=== PATIENT | female | born 1995 | race Caucasian/White ===

== ENCOUNTER 2020-10-15 14:14 | Emergency (ER) | payer MEDICAID ==
[2020-10-15] MEDS ORDERED: Orphenadrine 60 MG/2 ML Inj IM ONE (14:53)
[2020-10-15] MEDS ORDERED: Ketorolac 60 MG/2 ML SDV IM ONE (14:53)
--- NOTE | 2020-10-15 16:18 | CT ---
INDICATION: Neck pain TECHNIQUE: Non-contrast axial CT of the cervical spine with coronal and sagittal reconstructions. No comparisons. FINDINGS: The overall stature and alignment of the cervical spine is within normal limits. Prevertebral soft tissues, cervical airway, dens and lateral masses are within normal limits. No evidence of bony fragments narrowing the central canal or visualized neural foramina. IMPRESSION: No radiographic evidence of acute osseous injury. Please note that all CT scans at this facility use dose modulation, iterative reconstruction, and/or weight-based dosing when appropriate to reduce radiation dose to as low as reasonably achievable. Dictated by Aurelio Alfaro MD @ 10/15/2020 4:16:[address] Aurelio Alfaro @ Oct 15 2020 4:16PM
--- NOTE | 2020-10-15 16:20 | CT ---
INDICATION: Low back pain. TECHNIQUE: Non-contrast axial CT of the lumbar spine with coronal and sagittal reconstructions. No comparisons. FINDINGS: The overall stature and alignment of the lumbar spine is within normal limits. No evidence of bony fragments narrowing the central canal or visualized neural foramina. Evidence of right sacroiliac joint fusion hardware. Evidence of IVC filter. IMPRESSION: No radiographic evidence of acute osseous injury. No radiographic evidence of suspicious central canal or foraminal narrowing. Please note that all CT scans at this facility use dose modulation, iterative reconstruction, and/or weight-based dosing when appropriate to reduce radiation dose to as low as reasonably achievable. Dictated by Aurelio Alfaro MD @ 10/15/2020 4:18:[address] Aurelio Alfaro @ Oct 15 2020 4:18PM
--- NOTE | 2020-10-15 16:37 | EDM.PDOC ---
ED HPI GENERAL MEDICAL PROBLEM - General Chief Complaint: Back Pain or Injury Stated Complaint: BACK PAIN Time Seen by Provider: 10/15/20 14:20 Source of Information: Reports: Patient History Limitations: Reports: No Limitations - History of Present Illness INITIAL COMMENTS - FREE TEXT/NARRATIVE: HISTORY AND PHYSICAL: History of present illness: Patient is a 25-year-old female who presents to the emergency room with complaints of neck and low back pain. She states she has chronic neck and back pain but over the past 1 week has been worse than usual. [place], has been here for 2 weeks, has not yet established with a primary care provider. She reports that she previously had been on several different pain medications for her back pain, but has not been on these due to the recent move. She states she was leaning over her balcony when she noticed the discomfort. She denies any injury, trauma or falls. She denies any urinary or fecal incontinence. She does have intermittent paresthesia of the left hand. She states her lumbar back pain has been "bad ever since her epidural". She denies any weakness or neurological deficits. Patient denies any fever, chills, headache, change in vision, syncope or near syncope. Denies any chest pain, shortness of breath or cough. Denies any abdominal pain, nausea, vomiting, diarrhea, constipation or dysuria. Has not noted any blood in urine or stool. No concern for . Patient has been eating and drinking appropriately. Review of systems: As per history of present illness and below otherwise all systems reviewed and negative. Past medical history: As per history of present illness and as reviewed below otherwise noncontributory. Surgical history: As per history of present illness and as reviewed below otherwise noncontributory. Social history: See social history for further information Family history: As per history of present illness and as reviewed below otherwise noncontributory. Physical exam: General: Well developed and well nourished. Alert and orientated x 3. Nontoxic in appearance and in no acute distress. Vital signs are stable and have been reviewed by me. Nursing notes were reviewed. HEENT: Atraumatic, normocephalic, pupils equal and reactive bilaterally, negative for conjunctival pallor or scleral icterus, mucous membranes moist, TMs normal bilaterally, throat clear, neck supple, nontender, trachea midline. No drooling or trismus noted. No meningeal signs. No hot potato voice noted. Lungs: Clear to auscultation bilaterally. No wheezes, rales, or rhonchi. Chest nontender. Normal work of breathing, no accessory muscles used. Heart: S1S2, regular rate and rhythm without overt murmur, gallops, or rubs. No JVD. No peripheral edema Abdomen: Soft, nondistended, nontender. Normoactive bowel sounds. Negative for masses or costovertebral tenderness. C-spine/Back: No pinpoint vertebral tenderness upon palpation. No crepitus, step-offs or obvious deformities. Paraspinous muscular tenderness to the cervical and low lumbar region bilaterally. Patient is ambulatory into the emergency room without difficulty or deficit. Able to rock back on heels and walk on toes. Denies any urinary or fecal incontinence. Denies any numbness, tingling or saddle paresthesia. No concerns of serious infection, fracture or cord compression, or cauda equina syndrome. Deep tendon reflexes brisk bilaterally. Skin: Intact, warm, dry. No lesions or rashes noted. Hematologic: No petechiae or purpra. Mucosa appropriate color and normal nail bed color and refill. Extremities: Atraumatic, moves all extremities per self without difficulty or deficits, negative for cords or calf pain. Neurovascular unremarkable. Neuro: Awake, alert, oriented. Cranial nerves II through XII unremarkable. Cerebellum unremarkable. Motor and sensory unremarkable throughout. Exam nonfocal. Psychiatric: Mood and affect are appropriate. Normal thought process. Answering questions appropriately. Notes: *This patient was seen and evaluated during the 2019 SARS-CoV-2 novel coronavirus pandemic period. Community viral transmission is ongoing at time of this encounter and the emergency department is operating under pandemic response procedures. Since the patient is new to our facility I am unable to view any imaging. She states it has been "years" since she has had x-ray/CT or MRI of her back. Due to the intermittent paresthesia of the left hand I will do CTs. She does have a ride today we will give her Norflex and Toradol. Nursing staff has been able to set a follow-up appointment for this patient to be established with primary care. X-ray shows no acute findings. I have talked with the patient about today's findings, in addition to providing specific d etails for plan of care. Reassessment at the time of disposition demonstrates that the patient is in no acute distress. The patient is stable for discharge, counseling was provided and we discussed in great detail signs and symptoms that would prompt them to return to the Emergency Department. Medication, follow up and supportive care measures were reviewed and discussed. Voices understanding and is agreeable to plan of care. Denies any further questions or concerns at this time. Diagnostics: CT neck and lumbar spine Therapeutics: Norflex IM, Toradol IM Prescription: Diclofenac, Flexeril Impression: Acute on chronic back pain Plan: 1. The medication you received today does cause drowsiness, so do not drive for the remaining day 2. When resting please lay on a flat firm surface. Limit your immobility to prevent muscle stiffness. Get up to ambulate/move around/gentle stretching multiple times throughout the day. May alternate heat and ice to the painful areas 3. Tylenol as needed for back pain. Otherwise take the prescribed Flexeril and diclofenac as directed. Diclofenac is an anti-inflammatory so do not take any additional NSAIDs with this medication, such as ibuprofen or Aleve. Flexeril as a muscle relaxant, this medication may cause drowsiness a do not take it will driving her needing to be functioning outside of the house. 4. Please follow-up with your primary care provider as we discussed. Return to the ED as needed and as discussed. Definitive disposition and diagnosis as appropriate pending reevaluation and review of above. back Pain Score (Numeric/FACES): 7 - Related Data Allergies Allergy/AdvReac Type Severity Reaction Status Date / Time Penicillins Allergy Severe Hives Verified 10/15/20 14:52 Home Meds: Home Meds Cyclobenzaprine [Flexeril] 10 mg PO TID PRN #21 tab 10/15/20 [Rx] DULoxetine [Cymbalta] 60 mg PO BID 10/15/20 [History] Diclofenac Sodium [Voltaren] 75 mg PO BIDMEALS PRN #30 tab.cr 10/15/20 [Rx] Pantoprazole [ProTONIX IV] 40 mg PO DAILY 10/15/20 [History] metFORMIN [Glucophage XR] 300 mg PO DAILY 10/15/20 [History] traZODone 1 tab PO DAILY 10/15/20 [History] Past Medical History HEENT History: Reports: None Cardiovascular History: Reports: None Respiratory History: Reports: Asthma Gastrointestinal History: Reports: Other (See Below) Other Gastrointestinal History: gastropheresis Genitourinary History: Reports: None EYEGLASS CUTTER History: Reports: None Musculoskeletal History: Reports: Back Pain, Chronic, Fibromyalgia, Gout, RA Neurological History: Reports: None Psychiatric History: Reports: None Endocrine/Metabolic History: Reports: Diabetes, Type II Hematologic History: Reports: None Immunologic History: Reports: None Oncologic (Cancer) History: Reports: None Dermatologic History: Reports: None - Infectious Disease History Infectious Disease History: Reports: Chicken Pox, MRSA - Past Surgical History HEENT Surgical History: Reports: None Cardiovascular Surgical History: Reports: None Respiratory Surgical History: Reports: None GI Surgical History: Reports: Other (See Below) Other GI Surgeries/Procedures: Radition so spleen Female Surgical History: Reports: None Endocrine Surgical History: Reports: None Neurological Surgical History: Reports: None Musculoskeletal Surgical History: Reports: Other (See Below) Other Musculoskeletal Surgeries/Procedures:: "screws placed in back" Oncologic Surgical History: Reports: None Dermatological Surgical History: Reports: None Social & Family History - Family History Family Medical History: No Pertinent Family History - Tobacco Use Tobacco Use Status *Q: Current Every Day Tobacco User Years of Tobacco use: 5 Packs/Tins Daily: 0.5 - Caffeine Use Caffeine Use: Reports: Coffee - Recreational Drug Use Recreational Drug Use: Yes Recreational Drug Type: Reports: Marijuana/Hashish Recreational Drug Use Frequency: Daily ED ROS GENERAL - Review of Systems Review Of Systems: Comprehensive ROS is negative, except as noted in HPI. ED EXAM,LOWER BACK PAIN/INJURY - Physical Exam Exam: See Below (See dictation) Course - Vital Signs Last Recorded V/S: Last Vital Signs Temp 97.8 F 10/15/20 14:54 Pulse 80 10/15/20 16:45 Resp 17 10/15/20 16:45 BP 137/95 H 10/15/20 16:45 Pulse Ox 95 10/15/20 16:45 - Orders/Labs/Meds Labs: Laboratory Tests 10/15/20 Range/Units 15:11 Urine HCG, Qual NEGATIVE (NEGATIVE) Meds: Medications Discontinued Medications Generic Name Dose Route Start Last Admin Trade Name Freq PRN Reason Stop Dose Admin Ketorolac Tromethamine 60 mg 10/15/20 14:53 10/15/20 15:09 Ketorolac 60 Mg/2 Ml Sdv IM 10/15/20 14:54 60 mg ONETIME ONE Administration Orphenadrine Citrate 60 mg 10/15/20 14:53 10/15/20 15:10 Orphenadrine 60 Mg/2 Ml Inj IM 10/15/20 14:54 60 mg ONETIME ONE Administration Departure - Departure Time of Disposition: 16:37 Disposition: Home, Self-Care 01 Clinical Impression: Back pain Qualifiers: Back pain location: low back pain Chronicity: unspecified Back pain laterality: bilateral Sciatica presence: without sciatica Qualified Code(s): M54.5 - Low back pain - Discharge Information Prescriptions: Cyclobenzaprine [Flexeril] 10 mg PO TID PRN #21 tab PRN Reason: Muscle Spasm Diclofenac Sodium [Voltaren] 75 mg PO BIDMEALS PRN #30 tab.cr PRN Reason: Pain Instructions: Chronic Back Pain, [id number] Referrals: PCP,None [Primary Care Provider] - Luis Manuel Deng MD [Physician] - 10/17/20 9:00 am (Please arrive 30 minutes early, bring photo ID and isurance cards) Forms: ED Department Discharge Additional Instructions: The following information is given to patients seen in the emergency department who are being discharged to home. This information is to outline your options for follow-up care. We provide all patients seen in our emergency department with a follow-up referral. The need for follow-up, as well as the timing and circumstances, are variable depending upon the specifics of your emergency department visit. If you don't have a primary care physician on staff, we will provide you with a referral. We always advise you to contact your personal physician following an emergency department visit to inform them of the circumstance of the visit and for follow-up with them and/or the need for any referrals to a consulting specialist. The emergency department will also refer you to a specialist when appropriate. This referral assures that you have the opportunity for follow-up care with a specialist. All of these measure are taken in an effort to provide you with optimal care, which includes your follow-up. Under all circumstances we always encourage you to contact your private physician who remains a resource for coordinating your care. When calling for follow-up care, please make the office aware that this follow-up is from your r ent emergency room visit. If for any reason you are refused follow-up, please contact the [facility] Emergency Department at and asked to speak to the emergency department charge nurse. [facility] [address] [place] [address] [facility] [address] [place] [id number] Thank you for choosing the [facility] emergency department in [place] for your medical needs today. It was a pleasure caring for you. Today you were seen in the emergency department for back pain. 1. The medication you received today does cause drowsiness, so do not drive for the remaining day 2. When resting please lay on a flat firm surface. Limit your immobility to prevent muscle stiffness. Get up to ambulate/move around/gentle stretching multiple times throughout the day. May alternate heat and ice to the painful areas 3. Tylenol as needed for back pain. Otherwise take the prescribed Flexeril and diclofenac as directed. Diclofenac is an anti-inflammatory so do not take any additional NSAIDs with this medication, such as ibuprofen or Aleve. Flexeril as a muscle relaxant, this medication may cause drowsiness a do not take it will driving her needing to be functioning outside of the house. 4. Please follow-up with your primary care provider as we discussed. Return to the ED as needed and as discussed. Sepsis Event Note (ED) - Evaluation Sepsis Screening Result: No Definite Risk - Focused Exam Vital Signs: Vital Signs Temp Pulse Resp BP Pulse Ox 10/15/20 16:45 80 17 137/95 H 95 10/15/20 14:54 97.8 F 98 17 131/96 H 96
== END 2020-10-15 16:45 | disposition home or self-care (01) ==
LOC: MW.ED 14:14
DX: G89.29 Other chronic pain (principal); M54.5 Low back pain; E11.9 Type 2 diabetes mellitus without complications; Z88.0 Allergy status to penicillin; Z79.84 Long term (current) use of oral hypoglycemic drugs; Z79.899 Other long term (current) drug therapy; Z72.0 Tobacco use
CPT/HCPCS: 72125; 72131; 81025; 96372; 99284; J1885; J2360

== ENCOUNTER 2020-10-22 12:21 | Emergency (ER) | payer MEDICAID | END 2020-10-22 14:00 | disposition left against medical advice (07) | LOC: MW.ED 12:21 | DX: Z53.21 Procedure and treatment not carried out due to patient leaving prior to being seen by health care provider (principal) ==

== ENCOUNTER 2021-03-11 12:24 | Emergency (ER) | payer MEDICAID ==
--- NOTE | 2021-03-11 12:28 | EDM.PDOC ---
ED HPI GENERAL MEDICAL PROBLEM - General Chief Complaint: Abdominal Pain Stated Complaint: STOMACH PAIN, RECTAL BLEEDING, VOMITTING Time Seen by Provider: 03/11/21 12:25 Source of Information: Reports: Patient History Limitations: Reports: No Limitations - History of Present Illness INITIAL COMMENTS - FREE TEXT/NARRATIVE: 25-year-old female past medical history fibromyalgia, obesity, gastroparesis, rheumatoid arthritis presents for nausea, vomiting, midepigastric abdominal pain, diarrhea, bloody stool. Patient notes that she moved here around 4 months ago. She states that ever since moving here about once a month she will have these episodes of abdominal pain, nausea, vomiting, diarrhea. She notes that she had a GI physician in her previous home and has had an endoscopy and colonoscopy. She has never been diagnosed with ulcerative colitis or Crohn's disease. She has been told that she has gastroparesis. No history of diabetes. Today she noted streaking bright red blood in her stool as well as blood with wiping. She has not noticed this in the past. She notes that after these episodes she usually feels fine the next day. She does have an appointment with gastroenterology in April but felt like she could not wait considering the return of symptoms today. abdomen Pain Score (Numeric/FACES): 9 - Related Data Allergies Allergy/AdvReac Type Severity Reaction Status Date / Time Penicillins Allergy Severe Hives Verified 03/11/21 12:44 Home Meds: Home Meds Cyclobenzaprine [Flexeril] 10 mg PO TID PRN #21 tab 10/15/20 [Rx] DULoxetine [Cymbalta] 60 mg PO BID 10/15/20 [History] Diclofenac Sodium [Voltaren] 75 mg PO BIDMEALS PRN #30 tab.cr 10/15/20 [Rx] Pantoprazole [ProTONIX IV] 40 mg PO DAILY 10/15/20 [History] metFORMIN [Glucophage XR] 300 mg PO DAILY 10/15/20 [History] Mometasone/Formoterol [Dulera 50 Mcg-5 Mcg Inhaler] 2 puff INH BID 10/22/20 [History] Past Medical History HEENT History: Reports: None Cardiovascular History: Reports: None Respiratory History: Reports: Asthma Gastrointestinal History: Reports: Other (See Below) Other Gastrointestinal History: gastropheresis Genitourinary History: Reports: None 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: Reports: None Musculoskeletal History: Reports: Back Pain, Chronic, Fibromyalgia, Gout, RA Neurological History: Reports: None Psychiatric History: Reports: None Endocrine/Metabolic History: Reports: Diabetes, Type II Hematologic History: Reports: None Immunologic History: Reports: None Oncologic (Cancer) History: Reports: None Dermatologic History: Reports: None - Infectious Disease History Infectious Disease History: Reports: Chicken Pox, MRSA - Past Surgical History HEENT Surgical History: Reports: None Cardiovascular Surgical History: Reports: None Respiratory Surgical History: Reports: None GI Surgical History: Reports: Other (See Below) Other GI Surgeries/Procedures: Radition so spleen Female Surgical History: Reports: None Endocrine Surgical History: Reports: None Neurological Surgical History: Reports: None Musculoskeletal Surgical History: Reports: Other (See Below) Other Musculoskeletal Surgeries/Procedures:: "screws placed in back" ,multile surgeries to legs- veins & MRSA surgeries Oncologic Surgical History: Reports: None Dermatological Surgical History: Reports: None Social & Family History - Family History Family Medical History: No Pertinent Family History - Caffeine Use Caffeine Use: Reports: Coffee ED ROS GENERAL - Review of Systems Review Of Systems: Comprehensive ROS is negative, except as noted in HPI. ED EXAM, GENERAL - Physical Exam Exam: See Below Exam Limited By: No Limitations General Appearance: Alert, WD/WN, No Apparent Distress Ears: Hearing Grossly Normal Throat/Mouth: Normal Voice, No Airway Compromise Head: Atraumatic, Normocephalic Neck: Normal Inspection Respiratory/Chest: No Respiratory Distress, Lungs Clear, Normal Breath Sounds, No Accessory Muscle Use Cardiovascular: Normal Peripheral Pulses, Regular Rate, Rhythm GI/Abdominal: Soft, Other (b/l upper abdominal TTP without guarding; rectal exam normal without external hemorrhoids, brown/mucous stool without BRBPR, guaiac negative) Extremities: Normal Inspection Neurological: Alert, Normal Cognition Psychiatric: Normal Affect, Normal Mood Skin Exam: Warm, Dry, Intact, Normal Color Course - Vital Signs Last Recorded V/S: Last Vital Signs Temp 99.0 F 03/11/21 12:40 Pulse 91 03/11/21 12:40 Resp 18 03/11/21 12:40 BP 167/87 H 03/11/21 12:40 Pulse Ox 99 03/11/21 12:40 - Orders/Labs/Meds Orders: Active Orders 24 hr Category Date Time Status Saline Lock Insert [OM.PC] Stat Oth 10/04/21 12:54 Ordered Labs: Laboratory Tests 03/11/21 03/11/21 03/11/21 Range/Units 13:10 13:33 13:33 WBC 8.94 (4.0-11.0) K/uL RBC 4.77 (4.30-5.90) M/uL Hgb 14.4 (12.0-16.0) g/dL Hct 43.3 (36.0-46.0) % MCV 90.8 (80.0-98.0) fL MCH 30.2 (27.0-32.0) pg MCHC 33.3 (31.0-37.0) g/dL RDW Std Deviation 46.6 (28.0-62.0) fl RDW Coeff of Ezra 14 (11.0-15.0) % Plt Count 294 (150-400) K/uL MPV 11.90 (7.40-12.00) fL Neut % (Auto) 51.8 (48.0-80.0) % Lymph % (Auto) 36.4 (16.0-40.0) % [place] % (Auto) 6.6 (0.0-15.0) % Eos % (Auto) 5.1 (0.0-7.0) % Baso % (Auto) 0.1 (0.0-1.5) % Neut # (Auto) 4.6 (1.4-5.7) K/uL Lymph # (Auto) 3.3 H (0.6-2.4) K/uL [place] # (Auto) 0.6 (0.0-0.8) K/uL Eos # (Auto) 0.5 (0.0-0.7) K/uL Baso # (Auto) 0.0 (0.0-0.1) K/uL Nucleated RBC % 0.0 /100WBC Nucleated RBCs # 0 K/uL Sodium 140 (136-145) mmol/L Potassium 4.2 (3.5-5.1) mmol/L Chloride 105 (98-107) mmol/L Carbon Dioxide 25.3 (21.0-32.0) mmol/L BUN 8 (7.0-18.0) mg/dL Creatinine 0.9 (0.6-1.0) mg/dL Est Cr Clr Drug Dosing 69.83 mL/min Estimated GFR (MDRD) > 60.0 ml/min Glucose 131 H (74-106) mg/dL Lactic Acid (0.4-2.0) mmol/L Calcium 9.1 (8.5-10.1) mg/dL Magnesium 1.7 L (1.8-2.4) mg/dL Total Bilirubin 0.3 (0.2-1.0) mg/dL AST 28 (15-37) IU/L ALT 50 (14-63) IU/L Alkaline Phosphatase 73 (46-116) U/L Total Protein 7.8 (6.4-8.2) g/dL Albumin 3.4 (3.4-5.0) g/dL Globulin 4.4 H (2.6-4.0) g/dL Albumin/Globulin Ratio 0.8 L (0.9-1.6) Lipase 35 L (73-393) U/L HCG, Qual (NEG) Urine Color YELLOW Urine Appearance HAZY Urine pH 6.0 (5.0-8.0) Ur Specific Falcon >= 1.030 (1.001-1.035) Urine Protein 100 H (NEGATIVE) mg/dL Urine Glucose (UA) NEGATIVE (NEGATIVE) mg/dL Urine Ketones NEGATIVE (NEGATIVE) mg/dL Urine Occult Blood LARGE H (NEGATIVE) Urine Nitrite NEGATIVE (NEGATIVE) Urine Bilirubin SMALL H (NEGATIVE) Urine Ictotest NEGATIVE Urine Urobilinogen 0.2 (<2.0) EU/dL Ur Leukocyte Esterase NEGATIVE (NEGATIVE) Urine RBC 0-2 (0-2/HPF) Urine WBC 0-2 (0-5/HPF) Ur Epithelial Cells RARE (NONE-FEW) Urine Bacteria FEW (NEGATIVE) 03/11/21 03/11/21 Range/Units 13:33 13:33 WBC (4.0-11.0) K/uL RBC (4.30-5.90) M/uL Hgb (12.0-16.0) g/dL Hct (36.0-46.0) % MCV (80.0-98.0) fL MCH (27.0-32.0) pg MCHC (31.0-37.0) g/dL RDW Std Deviation (28.0-62.0) fl RDW Coeff of Ezra (11.0-15.0) % Plt Count (150-400) K/uL MPV (7.40-12.00) fL Neut % (Auto) (48.0-80.0) % Lymph % (Auto) (16.0-40.0) % [place] % (Auto) (0.0-15.0) % Eos % (Auto) (0.0-7.0) % Baso % (Auto) (0.0-1.5) % Neut # (Auto) (1.4-5.7) K/uL Lymph # (Auto) (0.6-2.4) K/uL [place] # (Auto) (0.0-0.8) K/uL Eos # (Auto) (0.0-0.7) K/uL Baso # (Auto) (0.0-0.1) K/uL Nucleated RBC % /100WBC Nucleated RBCs # K/uL Sodium (136-145) mmol/L Potassium (3.5-5.1) mmol/L Chloride (98-107) mmol/L Carbon Dioxide (21.0-32.0) mmol/L BUN (7.0-18.0) mg/dL Creatinine (0.6-1.0) mg/dL Est Cr Clr Drug Dosing mL/min Estimated GFR (MDRD) ml/min Glucose (74-106) mg/dL Lactic Acid 0.6 (0.4-2.0) mmol/L Calcium (8.5-10.1) mg/dL Magnesium (1.8-2.4) mg/dL Total Bilirubin (0.2-1.0) mg/dL AST (15-37) IU/L ALT (14-63) IU/L Alkaline Phosphatase (46-116) U/L Total Protein (6.4-8.2) g/dL Albumin (3.4-5.0) g/dL Globulin (2.6-4.0) g/dL Albumin/Globulin Ratio (0.9-1.6) Lipase (73-393) U/L HCG, Qual NEGATIVE (NEG) Urine Color Urine Appearance Urine pH (5.0-8.0) Ur Specific Falcon (1.001-1.035) Urine Protein (NEGATIVE) mg/dL Urine Glucose (UA) (NEGATIVE) mg/dL Urine Ketones (NEGATIVE) mg/dL Urine Occult Blood (NEGATIVE) Urine Nitrite (NEGATIVE) Urine Bilirubin (NEGATIVE) Urine Ictotest Urine Urobilinogen (<2.0) EU/dL Ur Leukocyte Esterase (NEGATIVE) Urine RBC (0-2/HPF) Urine WBC (0-5/HPF) Ur Epithelial Cells (NONE-FEW) Urine Bacteria (NEGATIVE) Meds: Medications Discontinued Medications Generic Name Dose Route Start Last Admin Trade Name Frejorge PRN Reason Stop Dose Admin Famotidine 20 mg 03/11/21 12:54 03/11/21 13:40 Famotidine 20 Mg/2 Ml Sdv IVPUSH 03/11/21 12:55 20 mg ONETIME ONE Administration Hydromorphone HCl 1 mg 03/11/21 12:54 03/11/21 13:40 Hydromorphone 1 Mg/Ml Syringe IVPUSH 03/11/21 12:55 1 mg ONETIME ONE Administration Hydromorphone HCl 1 mg 03/11/21 14:22 03/11/21 14:52 Hydromorphone 1 Mg/Ml Syringe IVPUSH 03/11/21 14:23 1 mg ONETIME ONE Administration Sodium Chloride 1,000 mls @ 999 mls/hr 03/11/21 12:54 03/11/21 13:37 Normal Saline IV 03/11/21 13:54 999 mls/hr .Bolus ONE Administration Iopamidol 100 ml 03/11/21 14:40 03/11/21 14:41 Iopamidol 755 Mg/Ml 500 Ml Multipack Bottle IVPUSH 03/11/21 14:41 100 ml ONETIME STA Administration Ondansetron HCl 4 mg 03/11/21 12:54 03/11/21 13:40 Ondansetron 4 Mg/2 Ml Sdv IVPUSH 03/11/21 12:55 4 mg ONETIME ONE Administration - Re-Assessments/Exams Free Text/Narrative Re-Assessment/Exam: 03/11/21 15:34 Labs and imaging are unremarkable. Will discharge patient with a short course of Reglan for presumptive gastroparesis related pain. Patient does have follow- up with gastroenterology next month. Return precautions were discussed at length. Departure - Departure Time of Disposition: 15:34 Disposition: Home, Self-Care 01 Condition: Good Clinical Impression: Gastroparesis - Discharge Information Instructions: Gastroparesis Referrals: Larry Camacho MD [Primary Care Provider] - Forms: ED Department Discharge Additional Instructions: Your labs and CT imaging were unremarkable. Your pain is likely from your gastroparesis. You definitely need to follow-up with your steam setter in April like you have planned. I have sent a medication called Reglan to your pharmacy which can help with gastroparesis symptoms. If your pain becomes unbearable you are encouraged to come back to the emergency department for reassessment. The following information is given to patients seen in the emergency department who are being discharged to home. This information is to outline your options f or follow-up care. We provide all patients seen in our emergency department with a follow-up referral. The need for follow-up, as well as the timing and circumstances, are variable depending upon the specifics of your emergency department visit. If you don't have a primary care physician on staff, we will provide you with a referral. We always advise you to contact your personal physician following an emergency department visit to inform them of the circumstance of the visit and for follow-up with them and/or the need for any referrals to a consulting specialist. The emergency department will also refer you to a specialist when appropriate. This referral assures that you have the opportunity for follow-up care with a specialist. All of these measure are taken in an effort to provide you with optimal care, which includes your follow-up. Under all circumstances we always encourage you to contact your private physician who remains a resource for coordinating your care. When calling for follow-up care, please make the office aware that this follow-up is from your recent emergency room visit. If for any reason you are refused follow-up, please contact the [facility] Emergency Department at and asked to speak to the emergency department charge nurse. Please follow up with your primary care physician. If you do not have a primary care physician, see below: [facility] [address] [place] [id number] [facility] [address] [place] [id number] [facility] [address] [place] [id number] Sepsis Event Note (ED) - Focused Exam Vital Signs: Vital Signs Temp Pulse Resp BP Pulse Ox 03/11/21 12:40 99.0 F 91 18 167/87 H 99 - My Orders Last 24 Hours: My Active Orders 03/11/21 12:54 Saline Lock Insert [OM.PC] Stat - Assessment/Plan Last 24 Hours: My Active Orders 03/11/21 12:54 Saline Lock Insert [OM.PC] Stat
[2021-03-11] MEDS ORDERED: HYDROmorphone 1 MG/ML Syringe IVPUSH ONE ×2 (12:54→14:22)
[2021-03-11] MEDS ORDERED: Ondansetron 4 MG/2 ML SDV IVPUSH ONE (12:54)
[2021-03-11] MEDS ORDERED: Famotidine 20 MG/2 ML SDV IVPUSH ONE (12:54)
[2021-03-11] MEDS ORDERED: Sodium Chloride 0.9% 1,000 ML IV ONE (12:54)
[2021-03-11 14:01] LABS: BLOOD UREA NITROGEN,BUN 8 mg/dL (7.0-18.0); CARBON DIOXIDE,CO2 25.3 mmol/L (21.0-32.0); CHLORIDE,CL 105 mmol/L (98-107); GLUCOSE RANDOM 131 mg/dL (74-106); LIPASE 35 U/L (73-393); POTASSIUM,K 4.2 mmol/L (3.5-5.1); SODIUM,NA 140 mmol/L (136-145)
[2021-03-11] MEDS ORDERED: Iopamidol 755 MG/ML 500 ML Multipack Bottle IVPUSH STA (14:40)
--- NOTE | 2021-03-11 15:31 | CT ---
Indication: Nausea, vomiting, diarrhea, mid epigastric pain, history of gastroparesis, bloody stool Technique: Contrast enhanced axial CT imaging through the abdomen and pelvis. 100 mL Isovue 370 contrast agent was administered intravenously. Sagittal and coronal reconstructions are provided. Comparison: None Findings: No abnormalities are demonstrated relating to the liver, spleen, pancreas, adrenal glands, and kidneys. Cholecystectomy clips are noted. There is no abdominal lymphadenopathy. The portal vein is patent. IVC filter is in place. The abdominal aorta is normal in caliber. Metallic coil embolus is noted in the left upper quadrant. The stomach and duodenum are unremarkable. There is no small bowel wall thickening or abnormal distention. The appendix is noninflamed. There is no colonic wall thickening, mesenteric edema, or intraperitoneal free fluid. The urinary bladder, uterus, and ovaries are unremarkable. There is no pelvic lymphadenopathy or free fluid. Right sacroiliac fixation screws are noted. Remainder of the visualized osseous structures are unremarkable. The included lung bases are clear. Impression: No acute abnormality demonstrated in the abdomen and pelvis. Please note that all CT scans at this facility use dose modulation, iterative reconstruction, and/or weight-based dosing when appropriate to reduce radiation dose to as low as reasonably achievable. Dictated by Mireille Fonseca MD @ 03/11/2021 3:31:13 PM (Electronically Signed)
== END 2021-03-11 15:52 | disposition home or self-care (01) ==
LOC: MW.ED 12:24
DX: E11.43 Type 2 diabetes mellitus with diabetic autonomic (poly)neuropathy (principal); K31.84 Gastroparesis; R11.2 Nausea with vomiting, unspecified; E11.9 Type 2 diabetes mellitus without complications; Z88.0 Allergy status to penicillin; Z79.84 Long term (current) use of oral hypoglycemic drugs; Z79.899 Other long term (current) drug therapy
CPT/HCPCS: 74177; 80053; 81001; 83605; 83690; 83735; 84703; 85025; 96374; 96375; 96376; 99284; J1170; J2405; J3490; J7030; Q9967

== ENCOUNTER 2021-03-15 19:42 | Emergency (ER) | payer MEDICAID ==
[2021-03-15] MEDS ORDERED: Sodium Chloride 0.9% 2.5 ML Syringe FLUSH PRN (22:40)
[2021-03-15] MEDS ORDERED: Lactated Ringers 1,000 ML IV ONE (22:40)
[2021-03-15] MEDS ORDERED: Sodium Chloride 0.9% 10 ML Syringe FLUSH PRN (22:40)
[2021-03-15 23:50] LABS: BLOOD UREA NITROGEN,BUN 11 mg/dL (7.0-18.0); CARBON DIOXIDE,CO2 27.7 mmol/L (21.0-32.0); CHLORIDE,CL 104 mmol/L (98-107); GLUCOSE RANDOM 107 mg/dL (74-106); LIPASE 47 U/L (73-393); POTASSIUM,K 4.2 mmol/L (3.5-5.1); SODIUM,NA 141 mmol/L (136-145)
--- NOTE | 2021-03-15 23:57 | EDM.PDOC ---
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 She underwent 14 months ago in [place] where she had an epidural. She claims she has had chronic back pain in the lumbar spine since her epidural. Her back pain worsened over the past week. She also notes redness in the lumbar spine region. This evening her roommate was massaging her back where she was having back pain and noted serosanguineous cloudy drainage coming from a tiny hole at the epidural site. She also notes urinary incontinence since her 14 months ago and she wears a diaper. She denies fever, chills, fecal incontinence, lower extremity numbness or weakness. She also notes intermittent epigastric pain for 2 months. Her last episode of epigastric pain was 3 days ago and she vomited once yesterday and had diarrhea. She has a history of fibromyalgia and gastroparesis and she smokes marijuana every day. She notes she has undergone MRI after having screws placed in her pelvis. ROS: A 10-point review of systems, other than pertinent positives and negatives as stated per HPI, is otherwise negative Past medical history: No additional pertinent history Past Surgical history: No additional pertinent history Social history: No additional pertinent history Family history: No additional pertinent history PHYSICAL EXAM General: AOx4, GCS = 15, morbidly obese, mild distress HEENT: dry mucous membrane Neck: supple, no meningismus, no Kernig or Brudzinski Cardiac: S1S2 RRR Respiratory: CTAB, no crackles or rales, no wheezing Abdomen: Soft, nontender, no rebound or guarding, nondistended, no pulsatile mass. Back: Tender to cervical/lumbar spine. Expressible serosanguineous drainage out of 2mm stoma in the L-spine midline, with surrounding erythema. Musculoskeletal: NVI distally, no deformity Neuro: No focal deficits, CN 2 - 12 WNL. Lower Back Pain Score (Numeric/FACES): 8 - Related Data Allergies Allergy/AdvReac Type Severity Reaction Status Date / Time Penicillins Allergy Severe Hives Verified 03/15/21 21:56 Home Meds: Home Meds Cyclobenzaprine [Flexeril] 10 mg PO TID PRN #21 tab 10/15/20 [Rx] DULoxetine [Cymbalta] 60 mg PO BID 10/15/20 [History] Diclofenac Sodium [Voltaren] 75 mg PO BIDMEALS PRN #30 tab.cr 10/15/20 [Rx] Pantoprazole [ProTONIX IV] 40 mg PO DAILY 10/15/20 [History] metFORMIN [Glucophage XR] 300 mg PO DAILY 10/15/20 [History] Mometasone/Formoterol [Dulera 50 Mcg-5 Mcg Inhaler] 2 puff INH BID 10/22/20 [History] Metoclopramide HCl [Reglan] 10 mg PO Q8H PRN #30 tablet 03/11/21 [Rx] Promethazine [Phenergan] 25 mg PO Q6H PRN #12 tab 03/11/21 [Rx] Past Medical History HEENT History: Reports: None Cardiovascular History: Reports: None Respiratory History: Reports: Asthma Gastrointestinal History: Reports: Other (See Below) Other Gastrointestinal History: gastropheresis Genitourinary History: Reports: None [employer]ER History: Reports: None Musculoskeletal History: Reports: Back Pain, Chronic, Fibromyalgia, Gout, RA Neurological History: Reports: None Psychiatric History: Reports: None Endocrine/Metabolic History: Reports: Diabetes, Type II Hematologic History: Reports: None Immunologic History: Reports: None Oncologic (Cancer) History: Reports: None Dermatologic History: Reports: None - Infectious Disease History Infectious Disease History: Reports: Chicken Pox, MRSA - Past Surgical History HEENT Surgical History: Reports: None Cardiovascular Surgical History: Reports: None Respiratory Surgical History: Reports: None GI Surgical History: Reports: Other (See Below) Other GI Surgeries/Procedures: Radition so spleen Female Surgical History: Reports: None Endocrine Surgical History: Reports: None Neurological Surgical History: Reports: None Musculoskeletal Surgical History: Reports: Other (See Below) Other Musculoskeletal Surgeries/Procedures:: "screws placed in back" ,multile surgeries to legs- veins & MRSA surgeries Oncologic Surgical History: Reports: None Dermatological Surgical History: Reports: None Social & Family History - Family History Family Medical History: No Pertinent Family History - Tobacco Use Tobacco Use Status *Q: Never Tobacco User - Caffeine Use Caffeine Use: Reports: None - Recreational Drug Use Recreational Drug Use: No ED ROS GENERAL - Review of Systems Review Of Systems: See Below (see dictation) ED EXAM, GENERAL - Physical Exam Exam: See Below (see dictation) Course - Vital Signs Last Recorded V/S: Last Vital Signs Temp 97.5 F 03/15/21 21:55 Pulse 97 03/15/21 21:55 Resp 18 03/15/21 21:55 BP 142/101 H 03/15/21 21:55 Pulse Ox 97 03/15/21 21:55 - Orders/Labs/Meds Orders: Active Orders 24 hr Category Date Time Status CULTURE BLOOD [BC] Stat Lab 03/15/21 23:02 Received CULTURE BLOOD [BC] Stat Lab 03/15/21 23:29 Results CULTURE URINE [MREF] Stat Lab 03/15/21 22:05 Received PROCALCITONIN [REF] Stat Lab 03/15/21 23:02 Received Cefepime [Maxipime in D5W 2 GM/50 ML] 2 gm Med 03/16/21 01:23 Ordered Premix Bag 1 bag IV ONETIME Sodium Chloride 0.9% [Saline Flush] Med 03/15/21 22:40 Active 10 ml FLUSH ASDIRECTED PRN Sodium Chloride 0.9% [Saline Flush] Med 03/15/21 22:40 Active 2.5 ml FLUSH ASDIRECTED PRN Vancomycin Med 03/16/21 01:30 Ordered 1,769.01 mg IV Q12H Blood Culture x2 Reflex Set [OM.PC] Stat Oth 03/15/21 22:41 Ordered Saline Lock Insert [OM.PC] Stat Oth 03/15/21 22:40 Ordered Medication Orders Cefepime HCl 2 gm/ Premix 50 mls @ 100 mls/hr IV ONETIME ONE Stop: 03/16/21 01:52 Sodium Chloride (Sodium Chloride 0.9% 10 Ml Syringe) 10 ml FLUSH ASDIRECTED PRN PRN Reason: Keep Vein Open Last Admin: 03/15/21 23:05 Dose: 10 ml Documented by: KARIN Sodium Chloride (Sodium Chloride 0.9% 2.5 Ml Syringe) 2.5 ml FLUSH ASDIRECTED PRN PRN Reason: Keep Vein Open Last Admin: 03/15/21 23:05 Dose: 2.5 ml Documented by: KARIN Vancomycin HCl (Vancomycin 500 Mg Sdv) 1,769.01 mg 15 mg/kg (1769.01 mg) IV Q12H CARTER Labs: Laboratory Tests 03/15/21 03/15/21 03/15/21 Range/Units 21:41 22:05 22:05 WBC (4.0-11.0) K/uL RBC (4.30-5.90) M/uL Hgb (12.0-16.0) g/dL Hct (36.0-46.0) % MCV (80.0-98.0) fL MCH (27.0-32.0) pg MCHC (31.0-37.0) g/dL RDW Std Deviation (28.0-62.0) fl RDW Coeff of Ezra (11.0-15.0) % Plt Count (150-400) K/uL MPV (7.40-12.00) fL Neut % (Auto) (48.0-80.0) % Lymph % (Auto) (16.0-40.0) % [place] % (Auto) (0.0-15.0) % Eos % (Auto) (0.0-7.0) % Baso % (Auto) (0.0-1.5) % Neut # (Auto) (1.4-5.7) K/uL Lymph # (Auto) (0.6-2.4) K/uL [place] # (Auto) (0.0-0.8) K/uL Eos # (Auto) (0.0-0.7) K/uL Baso # (Auto) (0.0-0.1) K/uL Nucleated RBC % /100WBC Nucleated RBCs # K/uL ESR (0-19) mm/hr INR APTT (18.6-31.3) SEC Sodium (136-145) mmol/L Potassium (3.5-5.1) mmol/L Chloride (98-107) mmol/L Carbon Dioxide (21.0-32.0) mmol/L BUN (7.0-18.0) mg/dL Creatinine (0.6-1.0) mg/dL Est Cr Clr Drug Dosing mL/min Estimated GFR (MDRD) ml/min Glucose (74-106) mg/dL Lactic Acid (0.4-2.0) mmol/L Calcium (8.5-10.1) mg/dL Phosphorus (2.6-4.7) mg/dL Magnesium (1.8-2.4) mg/dL Total Bilirubin (0.2-1.0) mg/dL AST (15-37) IU/L ALT (14-63) IU/L Alkaline Phosphatase (46-116) U/L Creatine Kinase (26-308) U/L C-Reactive Protein (0.00-0.90) mg/dL Total Protein (6.4-8.2) g/dL Albumin (3.4-5.0) g/dL Globulin (2.6-4.0) g/dL Albumin/Globulin Ratio (0.9-1.6) Lipase (73-393) U/L Urine Color YELLOW Urine Appearance CLOUDY Urine pH 6.5 (5.0-8.0) Ur Specific [place] 1.025 (1.001-1.035) Urine Protein 100 H (NEGATIVE) mg/dL Urine Glucose (UA) NEGATIVE (NEGATIVE) mg/dL Urine Ketones NEGATIVE (NEGATIVE) mg/dL Urine Occult Blood LARGE H (NEGATIVE) Urine Nitrite POSITIVE H (NEGATIVE) Urine Bilirubin NEGATIVE (NEGATIVE) Urine Urobilinogen 0.2 (<2.0) EU/dL Ur Leukocyte Esterase NEGATIVE (NEGATIVE) Urine RBC 20-30 (0-2/HPF) Urine WBC 2-4 (0-5/HPF) Ur Epithelial Cells FEW (NONE-FEW) Urine Bacteria 4+ H (NEGATIVE) Urine Mucus LIGHT (NONE-MOD) Urine HCG, Qual NEGATIVE (NEGATIVE) SARS-CoV-2 RNA (EMMY) NEGATIVE (NEGATIVE) 03/15/21 03/15/21 03/15/21 Range/Units 23:02 23:02 23:02 WBC 10.12 (4.0-11.0) K/uL RBC 4.81 (4.30-5.90) M/uL Hgb 14.7 (12.0-16.0) g/dL Hct 43.5 (36.0-46.0) % MCV 90.4 (80.0-98.0) fL MCH 30.6 (27.0-32.0) pg MCHC 33.8 (31.0-37.0) g/dL RDW Std Deviation 46.8 (28.0-62.0) fl RDW Coeff of Ezra 14 (11.0-15.0) % Plt Count 305 (150-400) K/uL MPV 12.10 H (7.40-12.00) fL Neut % (Auto) 56.5 (48.0-80.0) % Lymph % (Auto) 31.9 (16.0-40.0) % [place] % (Auto) 6.0 (0.0-15.0) % Eos % (Auto) 5.4 (0.0-7.0) % Baso % (Auto) 0.2 (0.0-1.5) % Neut # (Auto) 5.7 (1.4-5.7) K/uL Lymph # (Auto) 3.2 H (0.6-2.4) K/uL [place] # (Auto) 0.6 (0.0-0.8) K/uL Eos # (Auto) 0.6 (0.0-0.7) K/uL Baso # (Auto) 0.0 (0.0-0.1) K/uL Nucleated RBC % 0.0 /100WBC Nucleated RBCs # 0 K/uL ESR (0-19) mm/hr INR APTT (18.6-31.3) SEC Sodium 141 (136-145) mmol/L Potassium 4.2 (3.5-5.1) mmol/L Chloride 104 (98-107) mmol/L Carbon Dioxide 27.7 (21.0-32.0) mmol/L BUN 11 (7.0-18.0) mg/dL Creatinine 0.8 (0.6-1.0) mg/dL Est Cr Clr Drug Dosing 78.56 mL/min Estimated GFR (MDRD) > 60.0 ml/min Glucose 107 H (74-106) mg/dL Lactic Acid 0.9 (0.4-2.0) mmol/L Calcium 9.0 (8.5-10.1) mg/dL Phosphorus 3.7 (2.6-4.7) mg/dL Magnesium 1.8 (1.8-2.4) mg/dL Total Bilirubin 0.4 (0.2-1.0) mg/dL AST 20 (15-37) IU/L ALT 41 (14-63) IU/L Alkaline Phosphatase 85 (46-116) U/L Creatine Kinase 56 (26-308) U/L C-Reactive Protein 3.90 H (0.00-0.90) mg/dL Total Protein 7.7 (6.4-8.2) g/dL Albumin 3.6 (3.4-5.0) g/dL Globulin 4.1 H (2.6-4.0) g/dL Albumin/Globulin Ratio 0.9 (0.9-1.6) Lipase 47 L (73-393) U/L Urine Color Urine Appearance Urine pH (5.0-8.0) Ur Specific [place] (1.001-1.035) Urine Protein (NEGATIVE) mg/dL Urine Glucose (UA) (NEGATIVE) mg/dL Urine Ketones (NEGATIVE) mg/dL Urine Occult Blood (NEGATIVE) Urine Nitrite (NEGATIVE) Urine Bilirubin (NEGATIVE) Urine Urobilinogen (<2.0) EU/dL Ur Leukocyte Esterase (NEGATIVE) Urine RBC (0-2/HPF) Urine WBC (0-5/HPF) Ur Epithelial Cells (NONE-FEW) Urine Bacteria (NEGATIVE) Urine Mucus (NONE-MOD) Urine HCG, Qual (NEGATIVE) SARS-CoV-2 RNA (EMMY) (NEGATIVE) 03/15/21 03/15/21 Range/Units 23:02 23:02 WBC (4.0-11.0) K/uL RBC (4.30-5.90) M/uL Hgb (12.0-16.0) g/dL Hct (36.0-46.0) % MCV (80.0-98.0) fL MCH (27.0-32.0) pg MCHC (31.0-37.0) g/dL RDW Std Deviation (28.0-62.0) fl RDW Coeff of Ezra (11.0-15.0) % Plt Count (150-400) K/uL MPV (7.40-12.00) fL Neut % (Auto) (48.0-80.0) % Lymph % (Auto) (16.0-40.0) % [place] % (Auto) (0.0-15.0) % Eos % (Auto) (0.0-7.0) % Baso % (Auto) (0.0-1.5) % Neut # (Auto) (1.4-5.7) K/uL Lymph # (Auto) (0.6-2.4) K/uL [place] # (Auto) (0.0-0.8) K/uL Eos # (Auto) (0.0-0.7) K/uL Baso # (Auto) (0.0-0.1) K/uL Nucleated RBC % /100WBC Nucleated RBCs # K/uL ESR 28 H (0-19) mm/hr INR 1.00 APTT 26.8 (18.6-31.3) SEC Sodium (136-145) mmol/L Potassium (3.5-5.1) mmol/L Chloride (98-107) mmol/L Carbon Dioxide (21.0-32.0) mmol/L BUN (7.0-18.0) mg/dL Creatinine (0.6-1.0) mg/dL Est Cr Clr Drug Dosing mL/min Estimated GFR (MDRD) ml/min Glucose (74-106) mg/dL Lactic Acid (0.4-2.0) mmol/L Calcium (8.5-10.1) mg/dL Phosphorus (2.6-4.7) mg/dL Magnesium (1.8-2.4) mg/dL Total Bilirubin (0.2-1.0) mg/dL AST (15-37) IU/L ALT (14-63) IU/L Alkaline Phosphatase (46-116) U/L Creatine Kinase (26-308) U/L C-Reactive Protein (0.00-0.90) mg/dL Total Protein (6.4-8.2) g/dL Albumin (3.4-5.0) g/dL Globulin (2.6-4.0) g/dL Albumin/Globulin Ratio (0.9-1.6) Lipase (73-393) U/L Urine Color Urine Appearance Urine pH (5.0-8.0) Ur Specific [place] (1.001-1.035) Urine Protein (NEGATIVE) mg/dL Urine Glucose (UA) (NEGATIVE) mg/dL Urine Ketones (NEGATIVE) mg/dL Urine Occult Blood (NEGATIVE) Urine Nitrite (NEGATIVE) Urine Bilirubin (NEGATIVE) Urine Urobilinogen (<2.0) EU/dL Ur Leukocyte Esterase (NEGATIVE) Urine RBC (0-2/HPF) Urine WBC (0-5/HPF) Ur Epithelial Cells (NONE-FEW) Urine Bacteria (NEGATIVE) Urine Mucus (NONE-MOD) Urine HCG, Qual (NEGATIVE) SARS-CoV-2 RNA (EMMY) (NEGATIVE) Meds: Medications Generic Name Dose Route Start Last Admin Trade Name Freq PRN Reason Stop Dose Admin Cefepime HCl 2 gm/ Premix 50 mls @ 100 mls/hr 03/16/21 01:23 IV 03/16/21 01:52 ONETIME ONE Sodium Chloride 10 ml 03/15/21 22:40 03/15/21 23:05 Sodium Chloride 0.9% 10 Ml Syringe FLUSH 10 ml ASDIRECTED PRN Administration Keep Vein Open Sodium Chloride 2.5 ml 03/15/21 22:40 03/15/21 23:05 Sodium Chloride 0.9% 2.5 Ml Syringe FLUSH 2.5 ml ASDIRECTED PRN Administration Keep Vein Open Vancomycin HCl 1,769.01 mg 03/16/21 01:30 Vancomycin 500 Mg Sdv 15 mg/kg (1769.01 mg) IV Q12H CARTER Discontinued Medications Generic Name Dose Route Start Last Admin Trade Name Freq PRN Reason Stop Dose Admin Lactated Ringer's 1,000 mls @ 999 mls/hr 03/15/21 22:40 03/15/21 23:05 Ringers, Lactated IV 03/15/21 23:40 999 mls/hr .BOLUS ONE Administration - Re-Assessments/Exams Free Text/Narrative Re-Assessment/Exam: 03/15/21 23:58 Patient will require transfer to outside facility for the need of higher level of care not available at this facility, and the need for potential neurosurgical quality consultant services unavailable at this facility. Any emergency conditions have been stabilized to the ability of the ED prior to the transfer. Case was discussed and accepted by Dr. Gomez at [facility] MEDICAL DECISION MAKING: I reviewed the patients past medical records, lab and radiographic findings. I discussed the case with the patient. My differential diagnosis included: Spinal epidural abscess, discitis. Patient lumbar spine was tender with expressible serosanguineous fluid from the epidural site, with her history of urinary incontinence, this is highly concerning for epidural abscess, she will need transfer for emergent MRI. Patient is given IV antibiotics prior to transfer. Departure - Departure Time of Disposition: : Disposition: DC/Tfer to [facility] 02 Condition: Good Clinical Impression: Urinary incontinence Back pain Qualifiers: Back pain location: low back pain Chronicity: unspecified Back pain laterality: bilateral Sciatica presence: without sciatica Qualified Code(s): M54.5 - Low back pain - Discharge Information *PRESCRIPTION DRUG MONITORING PROGRAM REVIEWED*: Not Applicable *COPY OF PRESCRIPTION DRUG MONITORING REPORT IN PATIENT FELA: Not Applicable Referrals: Larry Camacho MD [Primary Care Provider] - Forms: ED Department Discharge Critical Care Note - Critical Care Note Comments: CRITCAL CARE: The high probability of sudden, clinically significant deterioration in the patient's condition required the highest level of my preparedness to intervene urgently. The services I provided to this patient were to treat and/or prevent clinically significant deterioration. Services included the following: chart data review, reviewing nursing notes and/or old charts, documentation time, quality consultant collaboration regarding findings and treatment options, medication orders and management, direct patient care, vital sign assessments and ordering, interpreting and reviewing diagnostic studies/lab tests. Aggregate critical care time includes only time during which I was engaged in work directly related to the patient's care, as described above, whether at the bedside or elsewhere in the Emergency Department. It did not include time spent performing other reported procedures or the services of residents, students, nurses or physician assistants. Frequent interventions and/or frequent repeat evaluations were required as well as counseling and coordination of care regarding prognosis, treatments, and discussions with patient, staff and consultants. Critical Care (excluding other procedures): 40 minutes Sepsis Event Note (ED) - Focused Exam Vital Signs: Vital Signs Temp Pulse Resp BP Pulse Ox 03/15/21 21:55 97.5 F 97 18 142/101 H 97 - My Orders Last 24 Hours: My Active Orders 03/15/21 22:05 CULTURE URINE [MREF] Stat 03/15/21 22:40 Sodium Chloride 0.9% [Saline Flush] 10 ml FLUSH ASDIRECTED PRN Sodium Chloride 0.9% [Saline Flush] 2.5 ml FLUSH ASDIRECTED PRN Saline Lock Insert [OM.PC] Stat 03/15/21 22:41 Blood Culture x2 Reflex Set [OM.PC] Stat 03/15/21 23:02 CULTURE BLOOD [BC] Stat PROCALCITONIN [REF] Stat 03/15/21 23:29 CULTURE BLOOD [BC] Stat 03/16/21 01:23 Cefepime [Maxipime in D5W 2 GM/50 ML] 2 gm Premix Bag 1 bag IV ONETIME 03/16/21 01:30 Vancomycin 1,769.01 mg IV Q12H - Assessment/Plan Last 24 Hours: My Active Orders 03/15/21 22:05 CULTURE URINE [MREF] Stat 03/15/21 22:40 Sodium Chloride 0.9% [Saline Flush] 10 ml FLUSH ASDIRECTED PRN Sodium Chloride 0.9% [Saline Flush] 2.5 ml FLUSH ASDIRECTED PRN Saline Lock Insert [OM.PC] Stat 03/15/21 22:41 Blood Culture x2 Reflex Set [OM.PC] Stat 03/15/21 23:02 CULTURE BLOOD [BC] Stat PROCALCITONIN [REF] Stat 03/15/21 23:29 CULTURE BLOOD [BC] Stat 03/16/21 01:23 Cefepime [Maxipime in D5W 2 GM/50 ML] 2 gm Premix Bag 1 bag IV ONETIME 03/16/21 01:30 Vancomycin 1,769.01 mg IV Q12H
[2021-03-16] MEDS ORDERED: Cefepime 2 GM in Premix Bag 1 BAG IV ONE (01:23)
[2021-03-16] MEDS ORDERED: Vancomycin 500 MG SDV IV SCH (01:30)
[2021-03-16] MEDS ORDERED: Vancomycin 2 GM in Sodium Chloride 0.9% 500 ML IV ONE (01:47)
[2021-03-16] MEDS ORDERED: Morphine 4 MG/ML Syringe IVPUSH ONE (03:09)
== END 2021-03-16 06:41 | disposition left against medical advice (07) ==
LOC: MW.ED 19:42
DX: M54.50 Low back pain, unspecified (principal); R32 Unspecified urinary incontinence; J45.909 Unspecified asthma, uncomplicated; M10.9 Gout, unspecified; E11.9 Type 2 diabetes mellitus without complications; E66.01 Morbid (severe) obesity due to excess calories; Z68.43 Body mass index [BMI] 50.0-59.9, adult; Z88.0 Allergy status to penicillin; Z79.84 Long term (current) use of oral hypoglycemic drugs; Z79.899 Other long term (current) drug therapy; Z20.822 Contact with and (suspected) exposure to COVID-19
CPT/HCPCS: 36415; 80053; 81001; 81025; 82550; 83605; 83690; 83735; 84100; 84145; 85025; 85610; 85652; 85730; 86140; 87040; 87086; 87088; 87186; 87635; 96365; 96366; 96367; 96375; 99283; J7120; U0002

== ENCOUNTER 2021-03-27 17:27 | Emergency (ER) | payer MEDICAID ==
[2021-03-27] MEDS ORDERED: Sodium Chloride 0.9% 1,000 ML IV ONE (18:03)
[2021-03-27] MEDS ORDERED: Clindamycin Phosphate in D5W 600 MG in Premix Bag 1 BAG IV ONE ×2 (18:03)
[2021-03-27] MEDS ORDERED: Promethazine 25 MG/ML SDV IM ONE (18:04)
--- NOTE | 2021-03-27 18:05 | EDM.PDOC ---
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 Patient notes that she is on antibiotics for infection in her back. She saw a neurosurgeon last week and has follow-up appointment this Thursday. She denies any fevers but presents today because her clindamycin medication is making her nauseated and she is unable to keep it down. She is worried about the infection getting worse before her follow-up appointment in the setting of medication intolerance. She has tried Zofran at home with no relief. Back Pain Score (Numeric/FACES): 8 - Related Data Allergies Allergy/AdvReac Type Severity Reaction Status Date / Time Penicillins Allergy Severe Hives Verified 03/27/21 17:44 morphine Allergy Nausea Verified 03/27/21 17:44 Home Meds: Home Meds Cyclobenzaprine [Flexeril] 10 mg PO TID PRN #21 tab 10/15/20 [Rx] DULoxetine [Cymbalta] 60 mg PO BID 10/15/20 [History] Diclofenac Sodium [Voltaren] 75 mg PO BIDMEALS PRN #30 tab.cr 10/15/20 [Rx] metFORMIN [Glucophage XR] 300 mg PO DAILY 10/15/20 [History] Mometasone/Formoterol [Dulera 50 Mcg-5 Mcg Inhaler] 2 puff INH BID 10/22/20 [History] Promethazine [Phenergan] 25 mg PO Q6H PRN #12 tab 03/11/21 [Rx] Past Medical History HEENT History: Reports: None Cardiovascular History: Reports: None Respiratory History: Reports: Asthma Gastrointestinal History: Reports: Other (See Below) Other Gastrointestinal History: gastropheresis Genitourinary History: Reports: None BELT LACER History: Reports: None Musculoskeletal History: Reports: Back Pain, Chronic, Fibromyalgia, Gout, RA Neurological History: Reports: None Psychiatric History: Reports: None Endocrine/Metabolic History: Reports: Diabetes, Type II Hematologic History: Reports: None Immunologic History: Reports: None Oncologic (Cancer) History: Reports: None Dermatologic History: Reports: None - Infectious Disease History Infectious Disease History: Reports: Chicken Pox, MRSA - Past Surgical History HEENT Surgical History: Reports: None Cardiovascular Surgical History: Reports: None Respiratory Surgical History: Reports: None GI Surgical History: Reports: Other (See Below) Other GI Surgeries/Procedures: Radition so spleen Female Surgical History: Reports: None Endocrine Surgical History: Reports: None Neurological Surgical History: Reports: None Musculoskeletal Surgical History: Reports: Other (See Below) Other Musculoskeletal Surgeries/Procedures:: "screws placed in back" ,multile surgeries to legs- veins & MRSA surgeries Oncologic Surgical History: Reports: None Dermatological Surgical History: Reports: None Social & Family History - Family History Family Medical History: No Pertinent Family History - Tobacco Use Second Hand Smoke Exposure: No - Caffeine Use Caffeine Use: Reports: None - Recreational Drug Use Recreational Drug Use: Yes Drug Use in Last 12 Months: Yes Recreational Drug Type: Reports: Marijuana/Hashish ED ROS GENERAL - Review of Systems Review Of Systems: Comprehensive ROS is negative, except as noted in HPI. ED EXAM, GENERAL - Physical Exam Exam: See Below Exam Limited By: No Limitations General Appearance: Alert, WD/WN, No Apparent Distress Ears: Hearing Grossly Normal Throat/Mouth: Normal Voice, No Airway Compromise Head: Atraumatic, Normocephalic Respiratory/Chest: No Respiratory Distress, Lungs Clear, Normal Breath Sounds, No Accessory Muscle Use Cardiovascular: Normal Peripheral Pulses, Regular Rate, Rhythm GI/Abdominal: Soft, Non-Tender Back Exam: No: Vertebral Tenderness Extremities: Normal Inspection Neurological: Alert Psychiatric: Normal Affect, Normal Mood Skin Exam: Warm, Dry, Intact, Normal Color Course - Vital Signs Last Recorded V/S: Last Vital Signs Temp 98.4 F 03/27/21 17:39 Pulse 76 03/27/21 17:39 Resp 20 03/27/21 17:39 BP 129/76 03/27/21 17:39 Pulse Ox 98 03/27/21 17:39 - Orders/Labs/Meds Orders: Active Orders 24 hr Category Date Time Status Sodium Chloride 0.9% [Normal Saline] 1,000 ml Med 03/27/21 18:03 Active IV .Bolus Saline Lock Insert [OM.PC] Stat Oth 03/27/21 18:03 Ordered Medication Orders Sodium Chloride (Normal Saline) 1,000 mls @ 999 mls/hr IV .Bolus ONE Stop: 03/27/21 19:03 Last Admin: 03/27/21 18:31 Dose: 999 mls/hr Documented by: JOVON Labs: Laboratory Tests 03/27/21 03/27/21 Range/Units 18:30 18:30 WBC 8.09 (4.0-11.0) K/uL RBC 4.65 (4.30-5.90) M/uL Hgb 14.3 (12.0-16.0) g/dL Hct 42.6 (36.0-46.0) % MCV 91.6 (80.0-98.0) fL MCH 30.8 (27.0-32.0) pg MCHC 33.6 (31.0-37.0) g/dL RDW Std Deviation 48.5 (28.0-62.0) fl RDW Coeff of Ezra 15 (11.0-15.0) % Plt Count 247 (150-400) K/uL MPV 11.90 (7.40-12.00) fL Neut % (Auto) 45.9 L (48.0-80.0) % Lymph % (Auto) 41.0 H (16.0-40.0) % [place] % (Auto) 6.2 (0.0-15.0) % Eos % (Auto) 6.7 (0.0-7.0) % Baso % (Auto) 0.2 (0.0-1.5) % Neut # (Auto) 3.7 (1.4-5.7) K/uL Lymph # (Auto) 3.3 H (0.6-2.4) K/uL [place] # (Auto) 0.5 (0.0-0.8) K/uL Eos # (Auto) 0.5 (0.0-0.7) K/uL Baso # (Auto) 0.0 (0.0-0.1) K/uL Nucleated RBC % 0.0 /100WBC Nucleated RBCs # 0 K/uL Sodium 143 (136-145) mmol/L Potassium 4.4 (3.5-5.1) mmol/L Chloride 106 (98-107) mmol/L Carbon Dioxide 26.2 (21.0-32.0) mmol/L BUN 9 (7.0-18.0) mg/dL Creatinine 0.8 (0.6-1.0) mg/dL Est Cr Clr Drug Dosing 78.56 mL/min Estimated GFR (MDRD) > 60.0 ml/min Glucose 118 H (74-106) mg/dL Calcium 8.7 (8.5-10.1) mg/dL Total Bilirubin 0.3 (0.2-1.0) mg/dL AST 29 (15-37) IU/L ALT 48 (14-63) IU/L Alkaline Phosphatase 89 (46-116) U/L Total Protein 7.4 (6.4-8.2) g/dL Albumin 3.3 L (3.4-5.0) g/dL Globulin 4.1 H (2.6-4.0) g/dL Albumin/Globulin Ratio 0.8 L (0.9-1.6) Meds: Medications Generic Name Dose Route Start Last Admin Trade Name Gale PRN Reason Stop Dose Admin Sodium Chloride 1,000 mls @ 999 mls/hr 03/27/21 18:03 03/27/21 18:31 Normal Saline IV 03/27/21 19:03 999 mls/hr .Bolus ONE Administration Discontinued Medications Generic Name Dose Route Start Last Admin Trade Name Sajanq PRN Reason Stop Dose Admin Hydromorphone HCl 0.5 mg 03/27/21 18:37 03/27/21 18:48 Hydromorphone 1 Mg/Ml Syringe IVPUSH 03/27/21 18:38 0.5 mg ONETIME ONE Administration Clindamycin Phosphate 600 mg/ 50 mls @ 100 mls/hr 03/27/21 18:03 03/27/21 18:32 Premix IV 03/27/21 18:32 100 mls/hr ONETIME ONE Administration Promethazine HCl 25 mg 03/27/21 18:04 03/27/21 18:34 Promethazine 25 Mg/Ml Sdv IM 03/27/21 18:05 25 mg ONETIME ONE Administration - Re-Assessments/Exams Free Text/Narrative Re-Assessment/Exam: 03/27/21 18:07 We will get basic labs. Will give a dose of IV clindamycin. Will give Phenergan and IV fluid bolus. 03/27/21 18:55 Blood work is unremarkable. Will discharge with Phenergan and recommend following up with surgeon on Thursday as scheduled. Departure - Departure Time of Disposition: 18:55 Disposition: Home, Self-Care 01 Condition: Good Clinical Impression: Nausea - Discharge Information Instructions: Nausea and Vomiting, Adult Referrals: Larry Camacho MD [Primary Care Provider] - Forms: ED Department Discharge Additional Instructions: Your lab work is largely unremarkable. Your white blood cell count is normal. You do need to keep taking your antibiotics as prescribed, however, I know you have been having trouble keeping it down secondary to your nausea. I did send a prescription for medication called Phenergan to your pharmacy which is a more powerful nausea medication than Zofran. Please keep your follow-up appointment. The following information is given to patients seen in the emergency department who are being discharged to home. This information is to outline your options for follow-up care. We provide all patients seen in our emergency department with a follow-up referral. The need for follow-up, as well as the timing and circumstances, are variable depending upon the specifics of your emergency department visit. If you don't have a primary care physician on staff, we will provide you with a referral. We always advise you to contact your personal physician following an emergency department visit to inform them of the circumstance of the visit and for follow-up with them and/or the need for any referrals to a consulting specialist. The emergency department will also refer you to a specialist when appropriate. This referral assures that you have the opportunity for follow-up care with a specialist. All of these measure are taken in an effort to provide you with optimal care, which includes your follow-up. Under all circumstances we always encourage you to contact your private physician who remains a resource for coordinating your care. When calling for follow-up care, please make the office aware that this follow-up is from your recent emergency room visit. If for any reason you are refused follow-up, please contact the [facility] Emergency Department at and asked to speak to the emergency department charge nurse. Please follow up with your primary care physician. If you do not have a primary care physician, see below: [facility] [address] [place] [id number] [facility] [address] [place] [address] [facility] [address] [place] [address] Sepsis Event Note (ED) - Evaluation Sepsis Screening Result: No Definite Risk - Focused Exam Vital Signs: Vital Signs Temp Pulse Resp BP Pulse Ox 03/27/21 17:39 98.4 F 76 20 129/76 98 - My Orders Last 24 Hours: My Active Orders 03/27/21 18:03 Sodium Chloride 0.9% [Normal Saline] 1,000 ml IV .Bolus Saline Lock Insert [OM.PC] Stat - Assessment/Plan Last 24 Hours: My Active Orders 03/27/21 18:03 Sodium Chloride 0.9% [Normal Saline] 1,000 ml IV .Bolus Saline Lock Insert [OM.PC] Stat
[2021-03-27] MEDS ORDERED: HYDROmorphone 1 MG/ML Syringe IVPUSH ONE (18:37)
[2021-03-27 18:53] LABS: BLOOD UREA NITROGEN,BUN 9 mg/dL (7.0-18.0); CARBON DIOXIDE,CO2 26.2 mmol/L (21.0-32.0); CHLORIDE,CL 106 mmol/L (98-107); GLUCOSE RANDOM 118 mg/dL (74-106); POTASSIUM,K 4.4 mmol/L (3.5-5.1); SODIUM,NA 143 mmol/L (136-145)
== END 2021-03-27 19:45 | disposition home or self-care (01) ==
LOC: MW.ED 17:27
DX: R11.0 Nausea (principal); E11.9 Type 2 diabetes mellitus without complications; Z88.0 Allergy status to penicillin; Z88.5 Allergy status to narcotic agent; Z79.84 Long term (current) use of oral hypoglycemic drugs
CPT/HCPCS: 36415; 80053; 85025; 96365; 96372; 96375; 99283; J1170; J2550; J3490; J7030

== ENCOUNTER 2021-04-01 20:30 | Emergency (ER) | payer MEDICAID ==
[2021-04-02] MEDS ORDERED: Sodium Chloride 0.9% 10 ML Syringe FLUSH PRN (00:16)
[2021-04-02] MEDS ORDERED: Sodium Chloride 0.9% 2.5 ML Syringe FLUSH PRN (00:16)
[2021-04-02] MEDS ORDERED: Acetaminophen/oxyCODONE 325-10 MG Tab PO ONE (01:11)
--- NOTE | 2021-04-02 01:11 | EDM.PDOC ---
ED HPI GENERAL MEDICAL PROBLEM - General Chief Complaint: Skin Complaint Stated Complaint: INFECTION IN BACK Time Seen by Provider: 04/02/21 00:08 - History of Present Illness INITIAL COMMENTS - FREE TEXT/NARRATIVE: History of present illness: [] This patient has infection. She says she had a CT in [place] a week or 2 ago. She has an infection around her spine but not in her epidural space. The infection is sensitive only to linezolid which she is supposed to take. She has 2 pills now to take every 12 hours and the pharmacy told her she did have more tomorrow. She is followed by a local doctor here in [facility]. She complains of severe pain in her neck. Review of systems: As per history of present illness and below otherwise all systems reviewed and negative. Past medical history: As per history of present illness and as reviewed below otherwise noncontributory. Surgical history: As per history of present illness and as reviewed below otherwise noncontributory. Social history: No reported history of drug or alcohol abuse. Family history: As per history of present illness and as reviewed below otherwise noncontributory. Physical exam: Constitutional - well developed, well-nourished and in no acute distress HEENT -neck supple-Brudzinski is negative. Normocephalic, no evidence of trauma - external nose and mouth normal - no mass in neck and no JVD - mucosae moist EYES - full EOM, PERRL, no icterus - no evidence of inflammation, injection, or drainage Respiratory - no respiratory distress, equal bilateral expansion, lungs clear to auscultation and no abnormal lung sounds Cardiovascular - Regular Rhythm with S1 and S2 appreciated and no murmur, gallop or rub. GI - abdomen soft without distension or organomegaly - normal bowel sounds - no guard or rebound Musculoskeletal Kernig sign negative no gross deformity of long bones or joints - no tenderness, swelling or edema Neurologic - Alert and oriented times four - CN II-XII grossly intact - motor sensory and coordination symmetrically normal Psychiatric - appropriate mood and affect with normal thought content Hematologic - No petechiae or purpura - mucosa appropriate color and sclera not pale - normal nail bed color and refill Integument -no fluctuant areas or visible abscesses in the skin including the neck back and buttocks. No rash or evidence of trauma - normal turgor Diagnostics: [] Therapeutics: [] Impression: [] Plan: [] Definitive disposition and diagnosis as appropriate pending reevaluation and review of above. Back Pain Score (Numeric/FACES): 7 - Related Data Allergies Allergy/AdvReac Type Severity Reaction Status Date / Time Penicillins Allergy Severe Hives Verified 04/01/21 21:37 morphine Allergy Nausea Verified 04/01/21 21:37 Home Meds: Home Meds Cyclobenzaprine [Flexeril] 10 mg PO TID PRN #21 tab 10/15/20 [Rx] DULoxetine [Cymbalta] 60 mg PO BID 10/15/20 [History] Diclofenac Sodium [Voltaren] 75 mg PO BIDMEALS PRN #30 tab.cr 10/15/20 [Rx] metFORMIN [Glucophage XR] 300 mg PO DAILY 10/15/20 [History] Mometasone/Formoterol [Dulera 50 Mcg-5 Mcg Inhaler] 2 puff INH BID 10/22/20 [History] Promethazine [Phenergan] 25 mg PO Q6H PRN #12 tab 03/11/21 [Rx] Promethazine [Phenergan] 25 mg PO Q4H PRN #20 tab 03/27/21 [Rx] Acetaminophen/oxyCODONE [Percocet 325-10 MG] 1 tab PO Q4H PRN #14 tab 04/02/21 [Rx] Past Medical History HEENT History: Reports: None Cardiovascular History: Reports: None Respiratory History: Reports: Asthma Gastrointestinal History: Reports: Other (See Below) Other Gastrointestinal History: gastropheresis Genitourinary History: Reports: None [employer]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 [employer] 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[employer] History: Reports: None Musculoskeletal History: Reports: Back Pain, Chronic, Fibromyalgia, Gout, RA Neurological History: Reports: None Psychiatric History: Reports: None Endocrine/Metabolic History: Reports: Diabetes, Type II Hematologic History: Reports: None Immunologic History: Reports: None Oncologic (Cancer) History: Reports: None Dermatologic History: Reports: None - Infectious Disease History Infectious Disease History: Reports: Chicken Pox, MRSA - Past Surgical History HEENT Surgical History: Reports: None Cardiovascular Surgical History: Reports: None Respiratory Surgical History: Reports: None GI Surgical History: Reports: Other (See Below) Other GI Surgeries/Procedures: Radition so spleen Female Surgical History: Reports: None Endocrine Surgical History: Reports: None Neurological Surgical History: Reports: None Musculoskeletal Surgical History: Reports: Other (See Below) Other Musculoskeletal Surgeries/Procedures:: "screws placed in back" ,multile surgeries to legs- veins & MRSA surgeries Oncologic Surgical History: Reports: None Dermatological Surgical History: Reports: None Social & Family History - Family History Family Medical History: No Pertinent Family History - Tobacco Use Second Hand Smoke Exposure: No - Caffeine Use Caffeine Use: Reports: None - Recreational Drug Use Recreational Drug Use: Yes Drug Use in Last 12 Months: Yes Recreational Drug Type: Reports: Marijuana/Hashish ED ROS GENERAL - Review of Systems Review Of Systems: Comprehensive ROS is negative, except as noted in HPI. ED EXAM, SKIN/RASH Exam: See Below Text/Narrative:: My physical exam is in the HPI Course - Vital Signs Last Recorded V/S: Last Vital Signs Temp 36.8 C 04/01/21 21:18 Pulse 108 H 04/01/21 21:18 Resp 20 04/01/21 21:18 BP 127/81 04/01/21 21:18 Pulse Ox 97 04/01/21 21:18 - Orders/Labs/Meds Orders: Active Orders 24 hr Category Date Time Status CULTURE BLOOD [BC] Stat Lab 04/02/21 00:51 Received CULTURE BLOOD [BC] Stat Lab 04/02/21 01:25 Received Sodium Chloride 0.9% [Saline Flush] Med 04/02/21 00:16 Active 10 ml FLUSH ASDIRECTED PRN Sodium Chloride 0.9% [Saline Flush] Med 04/02/21 00:16 Active 2.5 ml FLUSH ASDIRECTED PRN Blood Culture x2 Reflex Set [OM.PC] Stat Oth 04/02/21 00:16 Ordered Saline Lock Insert [OM.PC] Stat Oth 04/02/21 00:16 Ordered Medication Orders Sodium Chloride (Sodium Chloride 0.9% 10 Ml Syringe) 10 ml FLUSH ASDIRECTED PRN PRN Reason: Keep Vein Open Sodium Chloride (Sodium Chloride 0.9% 2.5 Ml Syringe) 2.5 ml FLUSH ASDIRECTED PRN PRN Reason: Keep Vein Open Labs: Laboratory Tests 04/02/21 04/02/21 04/02/21 Range/Units 00:51 00:51 00:51 WBC 10.63 (4.0-11.0) K/uL RBC 4.68 (4.30-5.90) M/uL Hgb 14.4 (12.0-16.0) g/dL Hct 42.6 (36.0-46.0) % MCV 91.0 (80.0-98.0) fL MCH 30.8 (27.0-32.0) pg MCHC 33.8 (31.0-37.0) g/dL RDW Std Deviation 47.0 (28.0-62.0) fl RDW Coeff of Ezra 14 (11.0-15.0) % Plt Count 263 (150-400) K/uL MPV 12.10 H (7.40-12.00) fL Neut % (Auto) 58.7 (48.0-80.0) % Lymph % (Auto) 29.7 (16.0-40.0) % [place] % (Auto) 6.1 (0.0-15.0) % Eos % (Auto) 5.3 (0.0-7.0) % Baso % (Auto) 0.2 (0.0-1.5) % Neut # (Auto) 6.2 H (1.4-5.7) K/uL Lymph # (Auto) 3.2 H (0.6-2.4) K/uL [place] # (Auto) 0.7 (0.0-0.8) K/uL Eos # (Auto) 0.6 (0.0-0.7) K/uL Baso # (Auto) 0.0 (0.0-0.1) K/uL Nucleated RBC % 0.0 /100WBC Nucleated RBCs # 0 K/uL ESR 30 H (0-19) mm/hr Sodium 140 (136-145) mmol/L Potassium 3.9 (3.5-5.1) mmol/L Chloride 104 (98-107) mmol/L Carbon Dioxide 25.7 (21.0-32.0) mmol/L BUN 10 (7.0-18.0) mg/dL Creatinine 0.9 (0.6-1.0) mg/dL Est Cr Clr Drug Dosing 69.83 mL/min Estimated GFR (MDRD) > 60.0 ml/min Glucose 173 H (74-106) mg/dL Calcium 8.8 (8.5-10.1) mg/dL Total Bilirubin 0.2 (0.2-1.0) mg/dL AST 21 (15-37) IU/L ALT 38 (14-63) IU/L Alkaline Phosphatase 89 (46-116) U/L Creatine Kinase 49 (26-308) U/L Total Protein 7.7 (6.4-8.2) g/dL Albumin 3.1 L (3.4-5.0) g/dL Globulin 4.6 H (2.6-4.0) g/dL Albumin/Globulin Ratio 0.7 L (0.9-1.6) HCG, Qual (NEG) 04/02/21 Range/Units 00:51 WBC (4.0-11.0) K/uL RBC (4.30-5.90) M/uL Hgb (12.0-16.0) g/dL Hct (36.0-46.0) % MCV (80.0-98.0) fL MCH (27.0-32.0) pg MCHC (31.0-37.0) g/dL RDW Std Deviation (28.0-62.0) fl RDW Coeff of Ezra (11.0-15.0) % Plt Count (150-400) K/uL MPV (7.40-12.00) fL Neut % (Auto) (48.0-80.0) % Lymph % (Auto) (16.0-40.0) % [place] % (Auto) (0.0-15.0) % Eos % (Auto) (0.0-7.0) % Baso % (Auto) (0.0-1.5) % Neut # (Auto) (1.4-5.7) K/uL Lymph # (Auto) (0.6-2.4) K/uL [place] # (Auto) (0.0-0.8) K/uL Eos # (Auto) (0.0-0.7) K/uL Baso # (Auto) (0.0-0.1) K/uL Nucleated RBC % /100WBC Nucleated RBCs # K/uL ESR (0-19) mm/hr Sodium (136-145) mmol/L Potassium (3.5-5.1) mmol/L Chloride (98-107) mmol/L Carbon Dioxide (21.0-32.0) mmol/L BUN (7.0-18.0) mg/dL Creatinine (0.6-1.0) mg/dL Est Cr Clr Drug Dosing mL/min Estimated GFR (MDRD) ml/min Glucose (74-106) mg/dL Calcium (8.5-10.1) mg/dL Total Bilirubin (0.2-1.0) mg/dL AST (15-37) IU/L ALT (14-63) IU/L Alkaline Phosphatase (46-116) U/L Creatine Kinase (26-308) U/L Total Protein (6.4-8.2) g/dL Albumin (3.4-5.0) g/dL Globulin (2.6-4.0) g/dL Albumin/Globulin Ratio (0.9-1.6) HCG, Qual NEGATIVE (NEG) Meds: Medications Generic Name Dose Route Start Last Admin Trade Name Freq PRN Reason Stop Dose Admin Sodium Chloride 10 ml 04/02/21 00:16 Sodium Chloride 0.9% 10 Ml Syringe FLUSH ASDIRECTED PRN Keep Vein Open Sodium Chloride 2.5 ml 04/02/21 00:16 Sodium Chloride 0.9% 2.5 Ml Syringe FLUSH ASDIRECTED PRN Keep Vein Open Discontinued Medications Generic Name Dose Route Start Last Admin Trade Name Freq PRN Reason Stop Dose Admin Oxycodone/Acetaminophen 1 tab 04/02/21 01:11 04/02/21 01:20 Acetaminophen/Oxycodone 325-10 Mg Tab PO 04/02/21 01:12 1 tab ONETIME ONE Administration Departure - Departure Time of Disposition: 01:49 Disposition: Home, Self-Care 01 Condition: Good Clinical Impression: Soft tissue infection - Discharge Information Prescriptions: Acetaminophen/oxyCODONE [Percocet 325-10 MG] 1 tab PO Q4H PRN #14 tab PRN Reason: Pain (Severe 7-10) Referrals: Larry Camacho MD [Primary Care Provider] - Forms: ED Department Discharge Additional Instructions: [facility] - [facility] [address] [place] [address] [id number] [address] [address] The following information is given to patients seen in the emergency department who are being discharged to home. This information is to outline your options for follow-up care. We provide all patients seen in our emergency department with a follow-up referral. The need for follow-up, as well as the timing and circumstances, are variable depending upon the specifics of your emergency department visit. If you don't have a primary care physician on staff, we will provide you with a referral. We always advise you to contact your personal physician following an emergency department visit to inform them of the circumstance of the visit and for follow-up with them and/or the need for any referrals to a consulting specialist. The emergency department will also refer you to a specialist when appropriate. This referral assures that you have the opportunity for follow-up care with a specialist. All of these measure are taken in an effort to provide you with optimal care, which includes your follow-up. Under all circumstances we always encourage you to contact your private physician who remains a resource for coordinating your care. When calling for follow-up care, please make the office aware that this follow-up is from your recent emergency room visit. If for any reason you are refused follow-up, please contact the [facility] Emergency Department at and asked to speak to the emergency department charge nurse. Sepsis Event Note (ED) - Evaluation Sepsis Screening Result: No Definite Risk - Focused Exam Vital Signs: Vital Signs Temp Pulse Resp BP Pulse Ox 04/01/21 21:18 36.8 C 108 H 20 127/81 97 - My Orders Last 24 Hours: My Active Orders 04/02/21 00:16 Sodium Chloride 0.9% [Saline Flush] 10 ml FLUSH ASDIRECTED PRN Sodium Chloride 0.9% [Saline Flush] 2.5 ml FLUSH ASDIRECTED PRN Blood Culture x2 Reflex Set [OM.PC] Stat Saline Lock Insert [OM.PC] Stat 04/02/21 00:51 CULTURE BLOOD [BC] Stat 04/02/21 01:25 CULTURE BLOOD [BC] Stat - Assessment/Plan Last 24 Hours: My Active Orders 04/02/21 00:16 Sodium Chloride 0.9% [Saline Flush] 10 ml FLUSH ASDIRECTED PRN Sodium Chloride 0.9% [Saline Flush] 2.5 ml FLUSH ASDIRECTED PRN Blood Culture x2 Reflex Set [OM.PC] Stat Saline Lock Insert [OM.PC] Stat 04/02/21 00:51 CULTURE BLOOD [BC] Stat 04/02/21 01:25 CULTURE BLOOD [BC] Stat
[2021-04-02 01:25] LABS: BLOOD UREA NITROGEN,BUN 10 mg/dL (7.0-18.0); CARBON DIOXIDE,CO2 25.7 mmol/L (21.0-32.0); CHLORIDE,CL 104 mmol/L (98-107); GLUCOSE RANDOM 173 mg/dL (74-106); POTASSIUM,K 3.9 mmol/L (3.5-5.1); SODIUM,NA 140 mmol/L (136-145)
== END 2021-04-02 02:09 | disposition home or self-care (01) ==
LOC: MW.ED 20:30
DX: L08.9 Local infection of the skin and subcutaneous tissue, unspecified (principal); E11.9 Type 2 diabetes mellitus without complications; Z79.84 Long term (current) use of oral hypoglycemic drugs; Z79.899 Other long term (current) drug therapy; Z88.0 Allergy status to penicillin; Z88.5 Allergy status to narcotic agent
CPT/HCPCS: 36415; 80053; 82550; 84703; 85025; 85652; 87040; 99283; A9270

== ENCOUNTER 2021-04-10 07:19 | Emergency (ER) | payer MEDICAID ==
[2021-04-10] MEDS ORDERED: Metoclopramide 10 MG/2 ML SDV IVPUSH ONE (07:23)
[2021-04-10] MEDS ORDERED: Ketorolac 15 MG/ML SDV IVPUSH STA (07:23)
[2021-04-10] MEDS ORDERED: Haloperidol Lactate 5 MG/ML SDV IM ONE (07:23)
[2021-04-10] MEDS ORDERED: Sodium Chloride 0.9% 1,000 ML IV ONE (07:23)
--- NOTE | 2021-04-10 07:23 | EDM.PDOC ---
ED HPI GENERAL MEDICAL PROBLEM - General Stated Complaint: EMS Time Seen by Provider: 04/10/21 07:22 Source of Information: Reports: Patient History Limitations: Reports: No Limitations - History of Present Illness INITIAL COMMENTS - FREE TEXT/NARRATIVE: 25-year-old female past medical history chronic back infection, morbid obesity, gastroparesis presents for nausea and vomiting. Patient recently moved to the area. She notes that for the last 16 or so hours she has had difficult to control nausea, vomiting, abdominal pain. She has tried at home Zofran and Phenergan with minimal relief. abdomen Pain Score (Numeric/FACES): 9 - Related Data Allergies Allergy/AdvReac Type Severity Reaction Status Date / Time Penicillins Allergy Severe Hives Verified 04/10/21 07:29 morphine Allergy Nausea Verified 04/10/21 07:29 Home Meds: Home Meds Cyclobenzaprine [Flexeril] 10 mg PO TID PRN #21 tab 10/15/20 [Rx] DULoxetine [Cymbalta] 60 mg PO BID 10/15/20 [History] Diclofenac Sodium [Voltaren] 75 mg PO BIDMEALS PRN #30 tab.cr 10/15/20 [Rx] metFORMIN [Glucophage XR] 300 mg PO DAILY 10/15/20 [History] Mometasone/Formoterol [Dulera 50 Mcg-5 Mcg Inhaler] 2 puff INH BID 10/22/20 [History] Promethazine [Phenergan] 25 mg PO Q6H PRN #12 tab 03/11/21 [Rx] Promethazine [Phenergan] 25 mg PO Q4H PRN #20 tab 03/27/21 [Rx] Acetaminophen/oxyCODONE [Percocet 325-10 MG] 1 tab PO Q4H PRN #14 tab 04/02/21 [Rx] Past Medical History HEENT History: Reports: None Cardiovascular History: Reports: None Respiratory History: Reports: Asthma Gastrointestinal History: Reports: Other (See Below) Other Gastrointestinal History: gastropheresis Genitourinary History: Reports: None [employer] History: Reports: None Musculoskeletal History: Reports: Back Pain, Chronic, Fibromyalgia, Gout, RA Neurological History: Reports: None Psychiatric History: Reports: None Endocrine/Metabolic History: Reports: Diabetes, Type II Hematologic History: Reports: None Immunologic History: Reports: None Oncologic (Cancer) History: Reports: None Dermatologic History: Reports: None - Infectious Disease History Infectious Disease History: Reports: Chicken Pox, MRSA - Past Surgical History HEENT Surgical History: Reports: None Cardiovascular Surgical History: Reports: None Respiratory Surgical History: Reports: None GI Surgical History: Reports: Other (See Below) Other GI Surgeries/Procedures: Radition so spleen Female Surgical History: Reports: None Endocrine Surgical History: Reports: None Neurological Surgical History: Reports: None Musculoskeletal Surgical History: Reports: Other (See Below) Other Musculoskeletal Surgeries/Procedures:: "screws placed in back" ,multile surgeries to legs- veins & MRSA surgeries Oncologic Surgical History: Reports: None Dermatological Surgical History: Reports: None Social & Family History - Family History Family Medical History: No Pertinent Family History - Caffeine Use Caffeine Use: Reports: None ED ROS GENERAL - Review of Systems Review Of Systems: Comprehensive ROS is negative, except as noted in HPI. ED EXAM, GENERAL - Physical Exam Exam: See Below Exam Limited By: No Limitations General Appearance: Alert, WD/WN, No Apparent Distress Ears: Hearing Grossly Normal Throat/Mouth: Normal Voice, No Airway Compromise Head: Atraumatic, Normocephalic Respiratory/Chest: No Respiratory Distress, Lungs Clear, Normal Breath Sounds, No Accessory Muscle Use Cardiovascular: Normal Peripheral Pulses, Regular Rate, Rhythm GI/Abdominal: Soft, Non-Tender, Other (Morbidly obese) Extremities: Normal Inspection Neurological: Alert, Normal Cognition, Normal Gait Psychiatric: Normal Affect, Normal Mood Skin Exam: Warm, Dry, Intact, Normal Color Course - Vital Signs Last Recorded V/S: Last Vital Signs Temp 97.1 F 04/10/21 07:20 Pulse 78 04/10/21 09:41 Resp 16 04/10/21 08:11 BP 134/77 04/10/21 09:41 Pulse Ox 98 04/10/21 09:41 - Orders/Labs/Meds Orders: Active Orders 24 hr Category Date Time Status HCG QUALITATIVE,URINE [URCHEM] Stat Lab 04/10/21 10:07 Ordered UA W/ALEX RFLX IF INDICATED [URIN] Stat Lab 04/10/21 10:07 Ordered Saline Lock Insert [OM.PC] Stat Oth 04/10/21 07:23 Ordered Labs: Laboratory Tests 04/10/21 04/10/21 Range/Units 07:53 07:53 WBC 10.11 (4.0-11.0) K/uL RBC 4.90 (4.30-5.90) M/uL Hgb 14.9 (12.0-16.0) g/dL Hct 44.5 (36.0-46.0) % MCV 90.8 (80.0-98.0) fL MCH 30.4 (27.0-32.0) pg MCHC 33.5 (31.0-37.0) g/dL RDW Std Deviation 46.2 (28.0-62.0) fl RDW Coeff of Ezra 14 (11.0-15.0) % Plt Count 257 (150-400) K/uL MPV 11.80 (7.40-12.00) fL Neut % (Auto) 72.8 (48.0-80.0) % Lymph % (Auto) 18.6 (16.0-40.0) % O'Brien % (Auto) 5.7 (0.0-15.0) % Eos % (Auto) 2.7 (0.0-7.0) % Baso % (Auto) 0.2 (0.0-1.5) % Neut # (Auto) 7.4 H (1.4-5.7) K/uL Lymph # (Auto) 1.9 (0.6-2.4) K/uL O'Brien # (Auto) 0.6 (0.0-0.8) K/uL Eos # (Auto) 0.3 (0.0-0.7) K/uL Baso # (Auto) 0.0 (0.0-0.1) K/uL Nucleated RBC % 0.0 /100WBC Nucleated RBCs # 0 K/uL Sodium 139 (136-145) mmol/L Potassium 4.1 (3.5-5.1) mmol/L Chloride 104 (98-107) mmol/L Carbon Dioxide 24.0 (21.0-32.0) mmol/L BUN 10 (7.0-18.0) mg/dL Creatinine 0.9 (0.6-1.0) mg/dL Est Cr Clr Drug Dosing 69.83 mL/min Estimated GFR (MDRD) > 60.0 ml/min Glucose 167 H (74-106) mg/dL Calcium 8.6 (8.5-10.1) mg/dL Magnesium 1.5 L (1.8-2.4) mg/dL Total Bilirubin 0.4 (0.2-1.0) mg/dL AST 19 (15-37) IU/L ALT 33 (14-63) IU/L Alkaline Phosphatase 77 (46-116) U/L Total Protein 8.1 (6.4-8.2) g/dL Albumin 3.4 (3.4-5.0) g/dL Globulin 4.7 H (2.6-4.0) g/dL Albumin/Globulin Ratio 0.7 L (0.9-1.6) Lipase 74 (73-393) U/L Meds: Medications Discontinued Medications Generic Name Dose Route Start Last Admin Trade Name Gale PRN Reason Stop Dose Admin Haloperidol Lactate 5 mg 04/10/21 07:23 04/10/21 07:34 Haloperidol Lactate 5 Mg/Ml Sdv IM 04/10/21 07:24 5 mg ONETIME ONE Administration Sodium Chloride 1,000 mls @ 999 mls/hr 04/10/21 07:23 04/10/21 07:33 Normal Saline IV 04/10/21 08:23 999 mls/hr .Bolus ONE Administration Ketorolac Tromethamine 15 mg 04/10/21 07:23 04/10/21 07:34 Ketorolac 15 Mg/Ml Sdv IVPUSH 04/10/21 07:24 15 mg STAT STA Administration Metoclopramide HCl 10 mg 04/10/21 07:23 04/10/21 07:34 Metoclopramide 10 Mg/2 Ml Sdv IVPUSH 04/10/21 07:24 10 mg ONETIME ONE Administration Promethazine HCl 25 mg 04/10/21 07:24 04/10/21 07:34 Promethazine 25 Mg/Ml Sdv IM 04/10/21 07:25 25 mg ONETIME ONE Administration - Re-Assessments/Exams Free Text/Narrative Re-Assessment/Exam: 04/10/21 07:23 Low suspicion acute intra-abdominal pathology given soft and nontender abdomen, known history of gastroparesis. Will get basic labs and treat symptomatically. 04/10/21 09:30 Patient labs are grossly unremarkable aside from mild hypomagnesemia. She is sleeping comfortably after medications. Will reassess and anticipate discharge home. 04/10/21 10:07 Patient no longer sedated, she states that she is feeling markedly better. Will discharge with instructions to follow-up with GI physician. Departure - Departure Time of Disposition: 10:07 Disposition: Home, Self-Care 01 Condition: Good Clinical Impression: Gastroparesis - Discharge Information Instructions: Gastroparesis Referrals: PCP,None [Primary Care Provider] - Additional Instructions: You are seen in the emergency department for gastroparesis. You were given a medication called Haldol which is a very powerful antiemetic or antinausea medicine that works well for gastroparesis symptoms. Unfortunately this is not a medication that we typically prescribe to take at home as there are a lot of long-term side effects, however, it is useful in the acute setting in the emergency department. Your labs are all unremarkable aside from mild decreased magnesium. Please follow-up with a GI physician if you do not have one already information is provided below. [address] [place] [address] The following information is given to patients seen in the emergency department who are being discharged to home. This information is to outline your options for follow-up care. We provide all patients seen in our emergency department with a follow-up referral. The need for follow-up, as well as the timing and circumstances, are variable depending upon the specifics of your emergency department visit. If you don't have a primary care physician on staff, we will provide you with a referral. We always advise you to contact your personal physician following an emergency department visit to inform them of the circumstance of the visit and for follow-up with them and/or the need for any referrals to a consulting specialist. The emergency department will also refer you to a specialist when appropriate. This referral assures that you have the opportunity for follow-up care with a specialist. All of these measure are taken in an effort to provide you with optimal care, which includes your follow-up. Under all circumstances we always encourage you to contact your private physician who remains a resource for coordinating your care. When calling for follow-up care, please make the office aware that this follow-up is from your recent emergency room visit. If for any reason you are refused follow-up, please contact the [facility] Emergency Department at and asked to speak to the emergency department charge nurse. Please follow up with your primary care physician. If you do not have a primary care physician, see below: [facility] [address], [place] [address] [facility] [address] [place] [address] [facility] [address] [place] [address] Sepsis Event Note (ED) - Focused Exam Vital Signs: Vital Signs Temp Pulse Resp BP Pulse Ox 04/10/21 09:41 78 134/77 98 04/10/21 09:11 124 H 111/54 L 95 04/10/21 08:42 106 H 113/58 L 95 04/10/21 08:11 88 16 156/85 H 93 L 04/10/21 07:20 97.1 F 82 20 160/105 H 94 L - My Orders Last 24 Hours: My Active Orders 04/10/21 07:23 Saline Lock Insert [OM.PC] Stat 04/10/21 10:07 HCG QUALITATIVE,URINE [URCHEM] Stat UA W/ALEX RFLX IF INDICATED [URIN] Stat - Assessment/Plan Last 24 Hours: My Active Orders 04/10/21 07:23 Saline Lock Insert [OM.PC] Stat 04/10/21 10:07 HCG QUALITATIVE,URINE [URCHEM] Stat UA W/ALEX RFLX IF INDICATED [URIN] Stat
[2021-04-10] MEDS ORDERED: Promethazine 25 MG/ML SDV IM ONE (07:24)
[2021-04-10 08:24] LABS: BLOOD UREA NITROGEN,BUN 10 mg/dL (7.0-18.0); CHLORIDE,CL 104 mmol/L (98-107); GLUCOSE RANDOM 167 mg/dL (74-106); LIPASE 74 U/L (73-393); POTASSIUM,K 4.1 mmol/L (3.5-5.1); SODIUM,NA 139 mmol/L (136-145)
== END 2021-04-10 10:27 | disposition home or self-care (01) ==
LOC: MW.ED 07:19
DX: E11.43 Type 2 diabetes mellitus with diabetic autonomic (poly)neuropathy (principal); K31.84 Gastroparesis; E66.01 Morbid (severe) obesity due to excess calories; Z88.0 Allergy status to penicillin; Z88.5 Allergy status to narcotic agent; Z79.84 Long term (current) use of oral hypoglycemic drugs; Z79.899 Other long term (current) drug therapy; Z68.43 Body mass index [BMI] 50.0-59.9, adult
CPT/HCPCS: 36415; 80053; 81001; 81025; 83690; 83735; 85025; 96372; 96374; 96375; 99284; J1630; J1885; J2550; J2765; J7030

== ENCOUNTER 2021-04-15 13:06 | Emergency (ER) | payer MEDICAID ==
[2021-04-15] MEDS ORDERED: Acetaminophen/HYDROcodone 325-10 MG Tab PO ONE (20:12)
--- NOTE | 2021-04-15 20:35 | EDM.PDOC ---
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 The patient states that she is currently experiencing back pain throughout her entire back rated 10 out of 10 which she describes as achy and throbbing. She states that she has a draining wound associated with an abscess for which she has a appointment with her neurosurgeon this . She states that she was given hydrocodone however that does not seem to work and oxycodone seems to work better. She states that she contacted her physician who told her to come to the emergency department for pain medication refills. She states that she does not have any fever or chills and the area on her back is draining a clearish drainage. She denies any numbness, tingling, weakness. She denies any neck pain or stiffness. She denies any headache. She denies any bowel incontinence, urinary incontinence or saddle anesthesia. She states that she is mainly here for her pain medications. There are no exacerbating factors. Relieving factor include oxycodone. REVIEW OF SYSTEMS: Constitutional: Denies fever, chills. Eyes: Denies eye pain Ears, Nose, Mouth, & Throat: Denies earache Cardiovascular: Denies chest pain Respiratory: Denies shortness of breath Gastrointestinal: Denies Nausea, vomiting, diarrhea, hematochezia. Genitourinary: Denies hematuria Skin:Denies a rash MSK: Positive for back pain Neurological: Denies blurred vision, numbness, tingling, weakness psychiatric: Denies depression PAST MEDICAL HISTORY: As per history of present illness and as reviewed below otherwise noncontributory. SURGICAL HISTORY: As per history of present illness and as reviewed below otherwise noncontributory. SOCIAL HISTORY: As per history of present illness and as reviewed below otherwise noncontributory. FAMILY HISTORY: As per history of present illness and as reviewed below otherwise noncontributory. EXAMINATION OF ORGAN SYSTEMS/BODY AREAS: Constitutional: Blood pressure is 140/76, heart rate 106, respiratory rate 20 with an oxygen saturation of 95% on room air. Temperature 37.1 General: Well-appearing morbidly obese woman who is in no acute distress Psychiatric: Appropriate mood and affect. Eyes: No scleral icterus or conjunctival erythema ENMT: Moist mucous membranes. No pharyngeal erythema Cardiovascular: Regular, rate, and rhythm. No gallops, murmurs, or rubs. Bilateral upper extremity pulses symmetric and intact. No peripheral edema. No JVD. Respiratory: Lungs clear to auscultation bilaterally. No wheezes, rales, or rhonchi. Gastrointestinal: Soft, non-tender, non-distended. Normoactive bowel sounds Genitourinary: No suprapubic tenderness Musculoskeletal: Normal range of motion. No midline thoracic tenderness. No obvious drainage coming from the back. No cellulitis. Skin: No lesions or abrasions. Neurological: Alert, GCS 15 strength and sensation grossly intact in upper and lower extremities bilaterally. MEDICAL DECISION MAKING AND COURSE IN THE ED WITH INTERPRETATION/REVIEW OF DIAGNOSTIC STUDIES: This is a 25-year-old woman with a past medical history of fibromyalgia, diabetes mellitus, gastroparesis who comes to the emergency department at the request of her primary care physician for refill of her pain medication. The patient vitals are currently stable. Patient does have a follow-up appointment with neurosurgeon for possible back abscess. Patient has no focal neurological deficit, is afebrile with no midline spinal tenderness. At this time I do not believe any labs or imaging are indicated. I did discuss that I would provide her with [place] here and prescribed her with a prescription for oxycodone. I did discuss her at this time that the emergency department is not the appropriate location for refill of opiate medications. She was given strict return precautions and I did have a discussion with her regarding have a discussion with her primary care physician that this is not the appropriate place for refill of opiate medications. If she would like further opiate medications she needs to follow-up with her neurosurgeon or her primary care physician. She was amenable to discharge at this time and had no further questions. DISPOSITION: The patient was discharged home in stable condition. The patient will follow up with her surgeon at her scheduled appointment CONDITION: Fair PROCEDURES: None FINAL IMPRESSION(S)/DIAGNOSES: 1. Acute on chronic back pain Luan Mccracken M.D. Back Pain Score (Numeric/FACES): 7 - Related Data Allergies Allergy/AdvReac Type Severity Reaction Status Date / Time Penicillins Allergy Severe Hives Verified 04/15/21 16:22 morphine Allergy Nausea Verified 04/15/21 16:22 Home Meds: Home Meds Cyclobenzaprine [Flexeril] 10 mg PO TID PRN #21 tab 10/15/20 [Rx] DULoxetine [Cymbalta] 60 mg PO BID 10/15/20 [History] Diclofenac Sodium [Voltaren] 75 mg PO BIDMEALS PRN #30 tab.cr 10/15/20 [Rx] metFORMIN [Glucophage XR] 300 mg PO DAILY 10/15/20 [History] Mometasone/Formoterol [Dulera 50 Mcg-5 Mcg Inhaler] 2 puff INH BID 10/22/20 [History] Promethazine [Phenergan] 25 mg PO Q6H PRN #12 tab 03/11/21 [Rx] Promethazine [Phenergan] 25 mg PO Q4H PRN #20 tab 03/27/21 [Rx] Acetaminophen/oxyCODONE [Percocet 325-10 MG] 1 tab PO Q4H PRN #14 tab 04/02/21 [Rx] Naloxone HCl [Narcan] 4 mg NS ONETIME #1 spray 04/15/21 [Rx] oxyCODONE HCl/Acetaminophen [Percocet 10-325 mg Tablet] 1 each PO Q6H #14 tablet 04/15/21 [Rx] Past Medical History HEENT History: Reports: None Cardiovascular History: Reports: None Respiratory History: Reports: Asthma Gastrointestinal History: Reports: Other (See Below) Other Gastrointestinal History: gastropheresis Genitourinary History: Reports: None 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 Musculoskeletal History: Reports: Back Pain, Chronic, Fibromyalgia, Gout, RA Neurological History: Reports: None Psychiatric History: Reports: None Endocrine/Metabolic History: Reports: Diabetes, Type II Hematologic History: Reports: None Immunologic History: Reports: None Oncologic (Cancer) History: Reports: None Dermatologic History: Reports: None - Infectious Disease History Infectious Disease History: Reports: Chicken Pox, MRSA - Past Surgical History HEENT Surgical History: Reports: None Cardiovascular Surgical History: Reports: None Respiratory Surgical History: Reports: None GI Surgical History: Reports: Other (See Below) Other GI Surgeries/Procedures: Radition so spleen Female Surgical History: Reports: None Endocrine Surgical History: Reports: None Neurological Surgical History: Reports: None Musculoskeletal Surgical History: Reports: Other (See Below) Other Musculoskeletal Surgeries/Procedures:: "screws placed in back" ,multile surgeries to legs- veins & MRSA surgeries Oncologic Surgical History: Reports: None Dermatological Surgical History: Reports: None Social & Family History - Family History Family Medical History: No Pertinent Family History - Tobacco Use Second Hand Smoke Exposure: No - Caffeine Use Caffeine Use: Reports: None - Recreational Drug Use Recreational Drug Use: No ED ROS GENERAL - Review of Systems Review Of Systems: See Below ED EXAM, GENERAL - Physical Exam Exam: See Below Course - Vital Signs Last Recorded V/S: Last Vital Signs Temp 37.1 C 04/15/21 16:04 Pulse 90 04/15/21 20:22 Resp 18 04/15/21 20:22 BP 124/76 04/15/21 20:22 Pulse Ox 96 04/15/21 20:22 - Orders/Labs/Meds Meds: Medications Discontinued Medications Generic Name Dose Route Start Last Admin Trade Name Gale PRN Reason Stop Dose Admin Hydrocodone Bitart/Acetaminophen 1 tab 04/15/21 20:12 04/15/21 20:20 Acetaminophen/Hydrocodone 325-10 Mg Tab PO 04/15/21 20:13 1 tab ONETIME ONE Administration Departure - Departure Time of Disposition: 20:33 Disposition: Home, Self-Care 01 Condition: Fair Clinical Impression: Back pain - Discharge Information *PRESCRIPTION DRUG MONITORING PROGRAM REVIEWED*: No *COPY OF PRESCRIPTION DRUG MONITORING REPORT IN PATIENT FELA: No Prescriptions: Naloxone HCl [Narcan] 4 mg NS ONETIME #1 spray oxyCODONE HCl/Acetaminophen [Percocet 10-325 mg Tablet] 1 each PO Q6H #14 tablet Instructions: Acute Back Pain, Adult Referrals: Larry Camacho MD [Primary Care Provider] - Forms: ED Department Discharge Additional Instructions: You were evaluated today on an emergent basis. At this time as discussed the emergency department is not the location where you got prescriptions for opiates refilled. I did provide you with a prescription today and I recommend that you follow-up with your primary care physician if you need further opiate prescriptions. I recommend you keep your appointment with your neurosurgeon this if you have any worsening symptoms please return to the emergency department. The symptoms include defecating on yourself, urinating on yourself, fever, worsening back pain. [facility] [address] [place] [address] [facility] [address] [place] [address] The patient is informed of any results of their evaluation and diagnostic workup and all questions are answered. They are given discharge instructions and return precautions. The patient is stable for discharge. The patient states they understand and agree with the plan and that they will return if their symptoms get worse or if they have any new concerns. The following information is given to patients seen in the emergency department who are being discharged to home. This information is to outline your options for follow-up care. We provide all patients seen in our emergency department with a follow-up referral. The need for follow-up, as well as the timing and circumstances, are variable depending upon the specifics of your emergency department visit. If you don't have a primary care physician on staff, we will provide you with a referral. We always advise you to contact your personal physician following an emergency department visit to inform them of the circumstance of the visit and for follow-up with them and/or the need for any referrals to a consulting specialist. The emergency department will also refer you to a specialist when appropriate. This referral assures that you have the opportunity for follow-up care with a specialist. All of these measure are taken in an effort to provide you with optimal care, which includes your follow-up. Under all circumstances we always encourage you to contact your private physician who remains a resource for coordinating your care. When calling for follow-up care, please make the office aware that this follow-up is from your recent emergency room visit. If for any reason you are refused follow-up, please contact the [facility] Emergency Department at and asked to speak to the emergency department charge nurse. Sepsis Event Note (ED) - Evaluation Sepsis Screening Result: No Definite Risk - Focused Exam Vital Signs: Vital Signs Pulse Resp BP Pulse Ox 04/15/21 20:22 90 18 124/76 96
== END 2021-04-15 20:46 | disposition home or self-care (01) ==
LOC: MW.ED 13:06
DX: G89.29 Other chronic pain (principal); M54.50 Low back pain, unspecified; E11.43 Type 2 diabetes mellitus with diabetic autonomic (poly)neuropathy; K31.84 Gastroparesis; Z88.0 Allergy status to penicillin; Z88.5 Allergy status to narcotic agent; Z79.84 Long term (current) use of oral hypoglycemic drugs
CPT/HCPCS: 99283; A9270

== ENCOUNTER 2021-04-24 17:52 | Emergency (ER) | payer MEDICAID ==
--- NOTE | 2021-04-24 20:51 | EDM.PDOC ---
ED HPI GENERAL MEDICAL PROBLEM - General Chief Complaint: General Stated Complaint: POSSIBLE INFECTION Time Seen by Provider: 04/24/21 20:31 Source of Information: Reports: Patient History Limitations: Reports: No Limitations - History of Present Illness INITIAL COMMENTS - FREE TEXT/NARRATIVE: 25-year-old female with history of fibromyalgia, gastroparesis, remote pelvic fracture 16 years ago repaired with hardware, presents today with low back pain at the lumbar spine region. She underwent 01/25 in [place] where she had an epidural. She claims she has had chronic back pain in the lumbar spine since her epidural. She notes purulent serosanguineous drainage 2 weeks ago after twisting her back. Her PCP Dr. Camacho told her to come in today as her blood work demonstrate findings worrisome for worsening infection. She does note swelling and pain in the lumbar spine region, along with chills, headache, nausea, vomiting, diarrhea, epigastric abdominal pain, chronic urinary incontinence. She denies fever, fecal incontinence, lower extremity numbness or weakness. She has a history of fibromyalgia and gastroparesis and she smokes marijuana every day. Last time she smoked was yerterday. She notes she has undergone MRI after having screws placed in her pelvis. ROS: A 10-point review of systems, other than pertinent positives and negatives as stated per HPI, is otherwise negative Past medical history: Fibromyalgia, gastroparesis Past Surgical history: No additional pertinent history Social history: No additional pertinent history Family history: No additional pertinent history PHYSICAL EXAM General: AOx4, GCS = 15, morbidly obese, mild distress HEENT: dry mucous membrane Neck: supple, no meningismus, no Kernig or Brudzinski Cardiac: S1S2 tachycardia Respiratory: CTAB, no crackles or rales, no wheezing Abdomen: Soft, epigastric tender, no rebound or guarding, nondistended, no pulsatile mass. Back: Tender to lumbar spine midline with induration and swelling. Musculoskeletal: NVI distally, no deformity Neuro: No focal deficits Back Pain Score (Numeric/FACES): 9 - Related Data Allergies Allergy/AdvReac Type Severity Reaction Status Date / Time Penicillins Allergy Severe Hives Verified 04/24/21 19:56 morphine Allergy Nausea Verified 04/24/21 19:56 Home Meds: Home Meds Cyclobenzaprine [Flexeril] 10 mg PO TID PRN #21 tab 10/15/20 [Rx] DULoxetine [Cymbalta] 60 mg PO BID 10/15/20 [History] Diclofenac Sodium [Voltaren] 75 mg PO BIDMEALS PRN #30 tab.cr 10/15/20 [Rx] metFORMIN [Glucophage XR] 300 mg PO DAILY 10/15/20 [History] Mometasone/Formoterol [Dulera 50 Mcg-5 Mcg Inhaler] 2 puff INH BID 10/22/20 [History] Promethazine [Phenergan] 25 mg PO Q6H PRN #12 tab 03/11/21 [Rx] Promethazine [Phenergan] 25 mg PO Q4H PRN #20 tab 03/27/21 [Rx] Acetaminophen/oxyCODONE [Percocet 325-10 MG] 1 tab PO Q4H PRN #14 tab 04/02/21 [Rx] Naloxone HCl [Narcan] 4 mg NS ONETIME #1 spray 04/15/21 [Rx] oxyCODONE HCl/Acetaminophen [Percocet 10-325 mg Tablet] 1 each PO Q6H #14 tablet 04/15/21 [Rx] Past Medical History HEENT History: Reports: None Cardiovascular History: Reports: None Respiratory History: Reports: Asthma Gastrointestinal History: Reports: Other (See Below) Other Gastrointestinal History: gastropheresis Genitourinary History: Reports: None 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 Musculoskeletal History: Reports: Back Pain, Chronic, Fibromyalgia, Gout, RA Neurological History: Reports: None Psychiatric History: Reports: None Endocrine/Metabolic History: Reports: Diabetes, Type II Hematologic History: Reports: None Immunologic History: Reports: None Oncologic (Cancer) History: Reports: None Dermatologic History: Reports: None - Infectious Disease History Infectious Disease History: Reports: Chicken Pox, MRSA - Past Surgical History HEENT Surgical History: Reports: None Cardiovascular Surgical History: Reports: None Respiratory Surgical History: Reports: None GI Surgical History: Reports: Other (See Below) Other GI Surgeries/Procedures: Radition so spleen Female Surgical History: Reports: None Endocrine Surgical History: Reports: None Neurological Surgical History: Reports: None Musculoskeletal Surgical History: Reports: Other (See Below) Other Musculoskeletal Surgeries/Procedures:: "screws placed in back" ,multile surgeries to legs- veins & MRSA surgeries Oncologic Surgical History: Reports: None Dermatological Surgical History: Reports: None Social & Family History - Family History Family Medical History: No Pertinent Family History - Tobacco Use Second Hand Smoke Exposure: No - Caffeine Use Caffeine Use: Reports: None - Recreational Drug Use Recreational Drug Use: Yes Drug Use in Last 12 Months: Yes Recreational Drug Type: Reports: Marijuana/Hashish ED ROS GENERAL - Review of Systems Review Of Systems: See Below (see dictation) ED EXAM, GENERAL - Physical Exam Exam: See Below (see dictation) Course - Vital Signs Last Recorded V/S: Last Vital Signs Temp 98.2 F 04/24/21 19:53 Pulse 106 H 04/25/21 05:32 Resp 18 04/25/21 05:32 BP 131/76 04/25/21 05:32 Pulse Ox 96 04/25/21 05:32 - Orders/Labs/Meds Orders: Active Orders 24 hr Category Date Time Status CULTURE BLOOD [BC] Stat Lab 04/24/21 20:45 Received CULTURE BLOOD [BC] Stat Lab 04/24/21 21:39 Received Blood Culture x2 Reflex Set [OM.PC] Stat Oth 04/24/21 21:24 Ordered Saline Lock Insert [OM.PC] Stat Oth 04/24/21 21:22 Ordered Labs: Laboratory Tests 04/24/21 04/24/21 04/24/21 Range/Units 20:45 20:45 20:45 WBC 9.67 (4.0-11.0) K/uL RBC 4.44 (4.30-5.90) M/uL Hgb 13.7 (12.0-16.0) g/dL Hct 41.0 (36.0-46.0) % MCV 92.3 (80.0-98.0) fL MCH 30.9 (27.0-32.0) pg MCHC 33.4 (31.0-37.0) g/dL RDW Std Deviation 47.3 (28.0-62.0) fl RDW Coeff of Ezra 14 (11.0-15.0) % Plt Count 240 (150-400) K/uL MPV 12.40 H (7.40-12.00) fL Neut % (Auto) 76.7 (48.0-80.0) % Lymph % (Auto) 12.9 L (16.0-40.0) % [place] % (Auto) 9.2 (0.0-15.0) % Eos % (Auto) 1.1 (0.0-7.0) % Baso % (Auto) 0.1 (0.0-1.5) % Neut # (Auto) 7.4 H (1.4-5.7) K/uL Lymph # (Auto) 1.3 (0.6-2.4) K/uL [place] # (Auto) 0.9 H (0.0-0.8) K/uL Eos # (Auto) 0.1 (0.0-0.7) K/uL Baso # (Auto) 0.0 (0.0-0.1) K/uL Nucleated RBC % 0.0 /100WBC Nucleated RBCs # 0 K/uL ESR 59 H (0-19) mm/hr INR 1.01 APTT 26.3 (18.6-31.3) SEC Sodium (136-145) mmol/L Potassium (3.5-5.1) mmol/L Chloride (98-107) mmol/L Carbon Dioxide (21.0-32.0) mmol/L BUN (7.0-18.0) mg/dL Creatinine (0.6-1.0) mg/dL Est Cr Clr Drug Dosing mL/min Estimated GFR (MDRD) ml/min Glucose (74-106) mg/dL Calcium (8.5-10.1) mg/dL Magnesium (1.8-2.4) mg/dL Total Bilirubin (0.2-1.0) mg/dL AST (15-37) IU/L ALT (14-63) IU/L Alkaline Phosphatase (46-116) U/L C-Reactive Protein (0.00-0.90) mg/dL Total Protein (6.4-8.2) g/dL Albumin (3.4-5.0) g/dL Globulin (2.6-4.0) g/dL Albumin/Globulin Ratio (0.9-1.6) Lipase (73-393) U/L Urine Color Urine Appearance Urine pH (5.0-8.0) Ur Specific [place] (1.001-1.035) Urine Protein (NEGATIVE) mg/dL Urine Glucose (UA) (NEGATIVE) mg/dL Urine Ketones (NEGATIVE) mg/dL Urine Occult Blood (NEGATIVE) Urine Nitrite (NEGATIVE) Urine Bilirubin (NEGATIVE) Urine Urobilinogen (<2.0) EU/dL Ur Leukocyte Esterase (NEGATIVE) Urine RBC (0-2/HPF) Urine WBC (0-5/HPF) Ur Epithelial Cells (NONE-FEW) Urine Bacteria (NEGATIVE) SARS-CoV-2 RNA (EMMY) (NEGATIVE) 04/24/21 04/24/21 04/25/21 Range/Units 20:45 21:44 04:30 WBC (4.0-11.0) K/uL RBC (4.30-5.90) M/uL Hgb (12.0-16.0) g/dL Hct (36.0-46.0) % MCV (80.0-98.0) fL MCH (27.0-32.0) pg MCHC (31.0-37.0) g/dL RDW Std Deviation (28.0-62.0) fl RDW Coeff of Ezra (11.0-15.0) % Plt Count (150-400) K/uL MPV (7.40-12.00) fL Neut % (Auto) (48.0-80.0) % Lymph % (Auto) (16.0-40.0) % [place] % (Auto) (0.0-15.0) % Eos % (Auto) (0.0-7.0) % Baso % (Auto) (0.0-1.5) % Neut # (Auto) (1.4-5.7) K/uL Lymph # (Auto) (0.6-2.4) K/uL [place] # (Auto) (0.0-0.8) K/uL Eos # (Auto) (0.0-0.7) K/uL Baso # (Auto) (0.0-0.1) K/uL Nucleated RBC % /100WBC Nucleated RBCs # K/uL ESR (0-19) mm/hr INR APTT (18.6-31.3) SEC Sodium 134 L (136-145) mmol/L Potassium 4.0 (3.5-5.1) mmol/L Chloride 99 (98-107) mmol/L Carbon Dioxide 28.4 (21.0-32.0) mmol/L BUN 9 (7.0-18.0) mg/dL Creatinine 0.9 (0.6-1.0) mg/dL Est Cr Clr Drug Dosing 69.83 mL/min Estimated GFR (MDRD) > 60.0 ml/min Glucose 141 H (74-106) mg/dL Calcium 8.6 (8.5-10.1) mg/dL Magnesium 1.7 L (1.8-2.4) mg/dL Total Bilirubin 0.5 (0.2-1.0) mg/dL AST 22 (15-37) IU/L ALT 38 (14-63) IU/L Alkaline Phosphatase 80 (46-116) U/L C-Reactive Protein 18.00 H (0.00-0.90) mg/dL Total Protein 7.8 (6.4-8.2) g/dL Albumin 2.8 L (3.4-5.0) g/dL Globulin 5.0 H (2.6-4.0) g/dL Albumin/Globulin Ratio 0.6 L (0.9-1.6) Lipase 31 L (73-393) U/L Urine Color BROWN Urine Appearance CLOUDY Urine pH 6.0 (5.0-8.0) Ur Specific [place] 1.015 (1.001-1.035) Urine Protein 100 H (NEGATIVE) mg/dL Urine Glucose (UA) NEGATIVE (NEGATIVE) mg/dL Urine Ketones 15 H (NEGATIVE) mg/dL Urine Occult Blood LARGE H (NEGATIVE) Urine Nitrite NEGATIVE (NEGATIVE) Urine Bilirubin NEGATIVE (NEGATIVE) Urine Urobilinogen 0.2 (<2.0) EU/dL Ur Leukocyte Esterase NEGATIVE (NEGATIVE) Urine RBC 110-120 (0-2/HPF) Urine WBC 8-11 (0-5/HPF) Ur Epithelial Cells RARE (NONE-FEW) Urine Bacteria RARE (NEGATIVE) SARS-CoV-2 RNA (EMMY) NEGATIVE (NEGATIVE) Meds: Medications Discontinued Medications Generic Name Dose Route Start Last Admin Trade Name Freq PRN Reason Stop Dose Admin Haloperidol Lactate 5 mg 04/25/21 01:27 04/25/21 01:32 Haloperidol Lactate 5 Mg/Ml Sdv IM 04/25/21 01:28 5 mg ONETIME ONE Administration Haloperidol Lactate Confirm 04/25/21 01:29 04/25/21 03:14 Haloperidol Lactate 5 Mg/Ml Sdv Administered 04/25/21 01:30 Not Given Dose 5 mg .ROUTE .STK-MED ONE Hydromorphone HCl 1 mg 04/24/21 22:06 04/24/21 22:09 Hydromorphone 1 Mg/Ml Syringe IVPUSH 04/24/21 22:07 1 mg ONETIME ONE Administration Hydromorphone HCl 1 mg 04/25/21 00:27 04/25/21 00:38 Hydromorphone 1 Mg/Ml Syringe IVPUSH 04/25/21 00:28 1 mg ONETIME ONE Administration Hydromorphone HCl Confirm 04/25/21 00:35 04/25/21 03:15 Hydromorphone 1 Mg/Ml Syringe Administered 04/25/21 00:36 Not Given Dose 1 mg .ROUTE .STK-MED ONE Lactated Ringer's 1,000 mls @ 999 mls/hr 04/24/21 21:22 04/24/21 21:41 Ringers, Lactated IV 04/24/21 22:22 999 mls/hr .BOLUS ONE Administration Clindamycin Phosphate 300 mg/ 52 mls @ 100 mls/hr 04/25/21 00:50 04/25/21 01:30 Sodium Chloride IV 04/25/21 01:21 Not Given ONETIME ONE Cefepime HCl 2 gm/ Premix 50 mls @ 100 mls/hr 04/25/21 00:50 04/25/21 02:06 IV 04/25/21 01:19 100 mls/hr ONETIME ONE Administration Vancomycin HCl 1.75 gm/ Premix 350 mls @ 200 mls/hr 04/25/21 01:15 04/25/21 03:22 IV 04/25/21 02:59 200 mls/hr STAT ONE Administration Clindamycin Phosphate 300 mg/ 50 mls @ 150 mls/hr 04/25/21 01:23 04/25/21 01:35 Premix IV 04/25/21 01:42 150 mls/hr ONETIME ONE Administration Clindamycin Phosphate Confirm 04/25/21 01:28 04/25/21 03:13 Cleocin In D5w 300 Mg/50 Ml Administered 04/25/21 01:29 Not Given Dose 50 mls @ as directed IV .STK-MED ONE Cefepime HCl Confirm 04/25/21 02:05 04/25/21 03:14 Maxipime In D5w 2 Gm/50 Ml Administered 04/25/21 02:06 Not Given Dose 50 mls @ as directed .ROUTE .STK-MED ONE Iopamidol 100 ml 04/24/21 22:38 04/24/21 22:39 Iopamidol 755 Mg/Ml 500 Ml Multipack Bottle IVPUSH 04/24/21 22:39 100 ml ONETIME STA Administration Ondansetron HCl Confirm 04/24/21 22:11 04/24/21 22:14 Ondansetron 4 Mg/2 Ml Sdv Administered 04/24/21 22:12 Not Given Dose 4 mg .ROUTE .STK-MED ONE Ondansetron HCl 4 mg 04/24/21 22:14 04/24/21 22:15 Ondansetron 4 Mg/2 Ml Sdv IVPUSH 04/24/21 22:15 4 mg ONETIME ONE Administration Ondansetron HCl 4 mg 04/25/21 00:09 04/25/21 00:37 Ondansetron 4 Mg/2 Ml Sdv IVPUSH 04/25/21 00:10 4 mg ONETIME ONE Administration Ondansetron HCl Confirm 04/25/21 00:35 04/25/21 03:13 Ondansetron 4 Mg/2 Ml Sdv Administered 04/25/21 00:36 Not Given Dose 4 mg .ROUTE .STK-MED ONE Sodium Chloride 10 ml 04/24/21 21:22 04/24/21 21:41 Sodium Chloride 0.9% 10 Ml Syringe FLUSH 10 ml ASDIRECTED PRN Administration Keep Vein Open Sodium Chloride 2.5 ml 04/24/21 21:22 04/24/21 21:41 Sodium Chloride 0.9% 2.5 Ml Syringe FLUSH 2.5 ml ASDIRECTED PRN Administration Keep Vein Open - Re-Assessments/Exams Free Text/Narrative Re-Assessment/Exam: 04/25/21 00:49 Patient will require transfer to outside facility for the need of higher level of care not available at this facility, and the need for healthcare network consultant services unavailable at this facility. Any emergency conditions have been stabilized to the ability of the ED prior to the transfer. Case was discussed with [facility] in [place], they are at capacity. Case discussed with [facility], Viv Ching at [facility], [facility] at [facility], [facility] at [facility], Nadya Hall has 8 holds in ED and at [facility], [facility] at [facility], [facility] at [facility]. 04/25/21 01:30 Patient receiving IV clindamycin, cefepime, vancomycin. Patient requesting IV Haldol. I again instructed her not to use marijuana as it can cause her vomiting. 04/25/21 02:37 Patient no longer vomiting after IV haldol. SHe feels much improved. 04/25/21 05:00 Patient is resting calmly, no active vomiting. 04/25/21 05:30 She is now choosing to leave against medical advice. I personally explained to the patient that choosing to do so may result in permanent bodily harm or . I discussed at great length that without further evaluation and monitoring there may be unforeseen circumstances and deterioration causing permanent bodily harm or as a result of their choice. The patient and her are alert, oriented, and competent at this time. The patient states that they are aware of the serious risks as explained, but they still choose to leave against medical advice. The patient is aware that they did not allow us to complete their evaluation, and there is still the possibility that an emergency condition could exist. This has been thoroughly explained to the patient and the patient has indicated your understanding of such. The patient is assuming all risk and liability for such a condition, or for such a condition subsequently developing. The patient is doing so at their own free will, with a full knowledge of the potential consequences of these actions. The patient was encouraged to return at any time should they experience any changes about evaluation, or should they develop any new or worsening symptoms that concerns them. MEDICAL DECISION MAKING: This patient was evaluated during the COVID-19 pandemic where resources and capacity might be affected. I reviewed the patients past medical records, lab and radiographic findings. I discussed the case with the patient. My differential diagnosis included: Epidural abscess, discitis, cellulitis, cannabinoid hyperemesis syndrome. Patient smokes marijuana every day, she was vomiting repeatedly until she received IV Haldol which completely resolved her vomiting symptoms. She had epigastric tenderness on my exam, suggestive of gastritis from the vomiting. Lipase unremarkable, I do not suspect pancreatitis. Her LFTs did not demonstrate elevated alk phos or T bili, I do not suspect gallbladder obstructive etiology. I instructed her again to stop using marijuana, which I did on April 02. Unfortunately she continued to use marijuana. Patient had tenderness and induration on lumbar spine exam, along with elevated ESR and CRP are worrisome for epidural abscess. Patient will need MRI for further assessment. After being informed of the potential long wait due to lack of capacity and surrounding hospitals, she is electing to sign out AMA. She elects to drive by POV to [facility]. Departure - Departure Time of Disposition: 05:52 Disposition: Against Medical Advice 07 Condition: Good Clinical Impression: Low back pain, Cannabinoid hyperemesis syndrome, Elevated erythrocyte sedimentation rate, Elevated C-reactive protein (CRP) - Discharge Information *PRESCRIPTION DRUG MONITORING PROGRAM REVIEWED*: Not Applicable *COPY OF PRESCRIPTION DRUG MONITORING REPORT IN PATIENT FELA: Not Applicable Instructions: Preventing Marijuana Misuse Referrals: Larry Camacho MD [Primary Care Provider] - Forms: ED Department Discharge, Refusal of Care AMA Sepsis Event Note (ED) - Evaluation Sepsis Screening Result: No Definite Risk - Focused Exam Vital Signs: Vital Signs Temp Pulse Resp BP Pulse Ox 04/25/21 05:32 106 H 18 131/76 96 04/25/21 03:07 115 H 18 139/56 L 95 04/25/21 01:36 114 H 129/79 93 L 04/24/21 23:27 104 H 16 135/71 97 04/24/21 22:30 109 H 18 137/61 94 L 04/24/21 19:53 98.2 F 109 H 20 139/81 96 - My Orders Last 24 Hours: My Active Orders 04/24/21 20:45 CULTURE BLOOD [BC] Stat 04/24/21 21:22 Saline Lock Insert [OM.PC] Stat 04/24/21 21:24 Blood Culture x2 Reflex Set [OM.PC] Stat 04/24/21 21:39 CULTURE BLOOD [BC] Stat - Assessment/Plan Last 24 Hours: My Active Orders 04/24/21 20:45 CULTURE BLOOD [BC] Stat 04/24/21 21:22 Saline Lock Insert [OM.PC] Stat 04/24/21 21:24 Blood Culture x2 Reflex Set [OM.PC] Stat 04/24/21 21:39 CULTURE BLOOD [BC] Stat
[2021-04-24] MEDS ORDERED: Lactated Ringers 1,000 ML IV ONE (21:22)
[2021-04-24] MEDS ORDERED: Sodium Chloride 0.9% 10 ML Syringe FLUSH PRN (21:22)
[2021-04-24] MEDS ORDERED: Sodium Chloride 0.9% 2.5 ML Syringe FLUSH PRN (21:22)
[2021-04-24 21:53] LABS: BLOOD UREA NITROGEN,BUN 9 mg/dL (7.0-18.0); CARBON DIOXIDE,CO2 28.4 mmol/L (21.0-32.0); CHLORIDE,CL 99 mmol/L (98-107); GLUCOSE RANDOM 141 mg/dL (74-106); SODIUM,NA 134 mmol/L (136-145)
[2021-04-24 21:54] LABS: LIPASE 31 U/L (73-393)
[2021-04-24] MEDS ORDERED: HYDROmorphone 1 MG/ML Syringe IVPUSH ONE (22:06)
[2021-04-24] MEDS ORDERED: Ondansetron 4 MG/2 ML SDV ONE (22:11)
[2021-04-24] MEDS: Ondansetron 4 MG/2 ML SDV IVPUSH ONE (22:15)
[2021-04-24] MEDS ORDERED: Iopamidol 755 MG/ML 500 ML Multipack Bottle IVPUSH STA (22:38)
--- NOTE | 2021-04-24 23:05 | CT ---
INDICATION: Eval for infection. TECHNIQUE: CT of the lumbar spine without contrast. Coronal and sagittal reformats are included. COMPARISON: Lumbar spine CT from 10/15/2020. FINDINGS: Five lumbar type vertebral bodies, with the last fully formed disc space referred to as L5-S1. No acute fracture or traumatic malalignment. An IVC filter is present with its 6 struts extending beyond the lumen of the IVC by approximately 9 mm. One of the metallic struts penetrates the anterior cortex of the L3 vertebral body. The appearance is unchanged from prior exam. No drainable subcutaneous or retroperitoneal fluid collections are identified. Findings at individual levels as follows: T12-L1: No spinal canal or neural foraminal stenosis. L1-2: No spinal canal or neural foraminal stenosis. L2-3: No spinal canal or neural foraminal stenosis. L3-4: No spinal canal or neural foraminal stenosis. L4-5: No spinal canal or neural foraminal stenosis. L5-S1: No spinal canal or neural foraminal stenosis. Imaged SI joints: Right SI joint arthrodesis without evidence of loosening. Imaged sacrum: None. IMPRESSION: 1. No CT evidence of lumbar spine infection. No drainable paraspinous fluid collections. 2. No acute osseous injuries or aggressive bone lesions are identified. 3. An IVC filter is present with its 6 struts extending beyond the lumen of the IVC by approximately 9 mm. One of the metallic struts penetrates the anterior cortex of the L3 vertebral body. The appearance is unchanged from prior exam. 4. Stable SI joint arthrodesis without evidence of loosening. Please note that all CT scans at this facility use dose modulation, iterative reconstruction, and/or weight-based dosing when appropriate to reduce radiation dose to as low as reasonably achievable. Dictated by Gold aPndey MD @ 04/25/2021 9:27:09 AM (Electronically Signed)
[2021-04-25] MEDS ORDERED: Ondansetron 4 MG/2 ML SDV IVPUSH ONE (00:09)
[2021-04-25] MEDS ORDERED: HYDROmorphone 1 MG/ML Syringe IVPUSH ONE (00:27)
[2021-04-25] MEDS ORDERED: Ondansetron 4 MG/2 ML SDV ONE (00:35)
[2021-04-25] MEDS ORDERED: HYDROmorphone 1 MG/ML Syringe ONE (00:35)
[2021-04-25] MEDS ORDERED: Cefepime 2 GM in Premix Bag 1 BAG IV ONE (00:50)
[2021-04-25] MEDS ORDERED: VANCOmycin 1.75 GM/350 ML 1.75 GM in Premix Bag 1 BAG IV ONE (01:15)
[2021-04-25] MEDS ORDERED: Clindamycin Phosphate in D5W 300 MG in Premix Bag 1 BAG IV ONE ×2 (01:23)
[2021-04-25] MEDS ORDERED: Haloperidol Lactate 5 MG/ML SDV IM ONE (01:27)
[2021-04-25] MEDS ORDERED: Clindamycin Phosphate in D5W 50 ML IV ONE (01:28)
[2021-04-25] MEDS ORDERED: Haloperidol Lactate 5 MG/ML SDV ONE (01:29)
[2021-04-25] MEDS ORDERED: Cefepime 50 ML ONE (02:05)
== END 2021-04-25 05:32 | disposition left against medical advice (07) ==
LOC: MW.ED 17:52
DX: M54.50 Low back pain, unspecified (principal); R11.2 Nausea with vomiting, unspecified; F12.90 Cannabis use, unspecified, uncomplicated; R79.82 Elevated C-reactive protein (CRP); R70.0 Elevated erythrocyte sedimentation rate; J45.909 Unspecified asthma, uncomplicated; E11.9 Type 2 diabetes mellitus without complications; Z88.0 Allergy status to penicillin; Z88.5 Allergy status to narcotic agent; Z79.84 Long term (current) use of oral hypoglycemic drugs; Z79.899 Other long term (current) drug therapy; Z98.890 Other specified postprocedural states; Z20.822 Contact with and (suspected) exposure to COVID-19
CPT/HCPCS: 36415; 72132; 80053; 81001; 83690; 83735; 85025; 85610; 85652; 85730; 86140; 87040; 87635; 93005; 96365; 96366; 96367; 96372; 96375; 96376; 99284; J0692; J1170; J1630; J2405; J3370; J3490; J7120; Q9967; U0002

== ENCOUNTER 2021-04-30 20:28 | Emergency (ER) | payer MEDICAID ==
[2021-04-30] MEDS ORDERED: Sulfamethoxazole/Trimethoprim 800-160 MG Tab PO ONE (22:12)
[2021-04-30] MEDS ORDERED: Ondansetron 4 MG Tab.DIS PO ONE (22:12)
[2021-04-30] MEDS ORDERED: Acetaminophen/HYDROcodone 325-5 MG Tab PO ONE (22:12)
--- NOTE | 2021-04-30 22:20 | EDM.PDOC ---
ED HPI GENERAL MEDICAL PROBLEM - General Chief Complaint: Skin Complaint Stated Complaint: POSSIBLE INFECTION Time Seen by Provider: 04/30/21 22:03 - History of Present Illness INITIAL COMMENTS - FREE TEXT/NARRATIVE: HISTORY AND PHYSICAL: History of present illness: This is a 25-year-old female with history significant for fibromyalgia, gastroparesis, remote pelvic fracture 16 years ago which was repaired with hardware, March 2010 [place] where she had an epidural which has resulted in chronic lower back pain with chronic draining infection. Patient reports that she is seen multiple doctors and has been to multiple hospitals and has been told that no surgical intervention is warranted at this time. Patient was seen and evaluated here on April [address] scan of her lumbar spine which revealed no evidence of infection or fluid collection. At that time, the patient received 1 dose of IV antibiotics and then signed out AGAINST MEDICAL ADVICE. Patient reports that she felt that the IV antibiotic helped with her pain and presents to the ER today requesting assistance with pain to her lower back with pain medicines. She reports that her doctor, Dr. Camacho, has basically given up on her and that she is try to find a new primary care doctor to help with her chronic infection and her chronic pain from the infection. Patient reports that she has an appointment on Thursday with a new doctor who she thinks is an [employer] doctor to help her with her chronic pain and pain management. Patient denies any recent fevers, shakes, chills, nausea, vomiting, diarrhea, dysuria, frequency, urgency, chest pain, shortness of breath. Patient denies any fecal incontinence, lower extremity numbness or weakness, paresthesias to her perineal region. Patient denies any bladder retention or bladder incontinence. Review of systems: As per history of present illness and below otherwise all systems reviewed and negative. Past medical history: As per history of present illness and as reviewed below otherwise noncontributory. Surgical history: As per history of present illness and as reviewed below otherwise noncontributory. Social history: No reported history of drug abuse. Family history: As per history of present illness and as reviewed below otherwise noncontributory. Physical exam: This patient was seen and evaluated during the 2019 SARS-CoV-2 novel coronavirus pandemic period. Community viral transmission is ongoing at time of this encounter and the emergency department is operating under pandemic response procedures. Constitutional: Patient is oriented to person, place, and time. Appears well- developed and well-nourished. No distress. HEENT: Moist mucous membranes Head: Normocephalic and atraumatic Eyes: Right eye exhibits no discharge. Left eye exhibits no discharge. No scleral icterus Neck: Normal range of motion. No tracheal deviation present. Cardiovascular: Normal rate and regular rhythm. Pulmonary: Effort normal, no respiratory distress. Abdominal: No distention Musculoskeletal: Normal range of motion Neurologic: Alert and oriented to person, place and time. Skin: [place], warm and dry. Psychiatric: Normal mood and affect. Behavior is normal. Judgment and thought content normal. Nursing note and vital signs have been reviewed Patient has tenderness to palpation diffusely throughout her lower back greatest around the L2-L5 region. Patient does have surgical incisions to her back which appear to be clean and dry. Patient has no fluctuance or point bony tenderness to any 1 particular spot. There is no purulent drainage there is no erythema there is no warmth there is no evidence of infection at this time. Diagnostics: [] Therapeutics: [] Assessment and plan: This is a 25-year-old female with history as above who presents ER today requesting assistance with pain medicines. Patient reports that she ran out of her pain medicines and currently does not have a primary care physician to assist her with getting pain medicine. Patient reports that in the past whenever she has had pain she has been instructed to come to the ER for pain management. Patient denies any recent fevers, shakes, chills. Patient has no neurological complaints. I will give the patient a dose of Honobia here in the ED. We will get her started empirically on Bactrim DS 2 tablets twice a day for 10 days as well as Zofran since she reports she has a difficult time taking antibiotics. Patient will need to follow-up with her doctor on Thursday as scheduled. Patient is been instructed to return to the ER if she develops any neurological symptoms or develops any new or concerning symptoms. Definitive disposition and diagnosis as appropriate pending reevaluation and review of above. Lower Back Pain Score (Numeric/FACES): 8 - Related Data Allergies Allergy/AdvReac Type Severity Reaction Status Date / Time Penicillins Allergy Severe Hives Verified 04/30/21 20:34 morphine Allergy Nausea Verified 04/30/21 20:34 Home Meds: Home Meds Cyclobenzaprine [Flexeril] 10 mg PO TID PRN #21 tab 10/15/20 [Rx] DULoxetine [Cymbalta] 60 mg PO BID 10/15/20 [History] Mometasone/Formoterol [Dulera 50 Mcg-5 Mcg Inhaler] 2 puff INH BID 10/22/20 [History] Ibuprofen 600 mg PO Q6HR PRN #30 tablet 04/30/21 [Rx] Ondansetron [Zofran ODT] 4 mg PO Q6H PRN #12 tab.dis 04/30/21 [Rx] Sulfamethoxazole/Trimethoprim [Bactrim Ds Tablet] 2 each PO BID #40 tablet 04/30/21 [Rx] Past Medical History HEENT History: Reports: None Cardiovascular History: Reports: None Respiratory History: Reports: Asthma Gastrointestinal History: Reports: Other (See Below) Other Gastrointestinal History: gastropheresis Genitourinary History: Reports: None [employer] History: Reports: None Musculoskeletal History: Reports: Back Pain, Chronic, Fibromyalgia, Gout, RA Neurological History: Reports: None Psychiatric History: Reports: None Endocrine/Metabolic History: Reports: Diabetes, Type II Hematologic History: Reports: None Immunologic History: Reports: None Oncologic (Cancer) History: Reports: None Dermatologic History: Reports: None - Infectious Disease History Infectious Disease History: Reports: Chicken Pox, MRSA - Past Surgical History HEENT Surgical History: Reports: None Cardiovascular Surgical History: Reports: None Respiratory Surgical History: Reports: None GI Surgical History: Reports: Other (See Below) Other GI Surgeries/Procedures: Radition so spleen Female Surgical History: Reports: None Endocrine Surgical History: Reports: None Neurological Surgical History: Reports: None Musculoskeletal Surgical History: Reports: Other (See Below) Other Musculoskeletal Surgeries/Procedures:: "screws placed in back" ,multile surgeries to legs- veins & MRSA surgeries Oncologic Surgical History: Reports: None Dermatological Surgical History: Reports: None Social & Family History - Family History Family Medical History: No Pertinent Family History - Caffeine Use Caffeine Use: Reports: None - Recreational Drug Use Recreational Drug Type: Reports: Marijuana/Hashish ED ROS GENERAL - Review of Systems Review Of Systems: See Below ED EXAM, SKIN/RASH Exam: See Below Course - Vital Signs Last Recorded V/S: Last Vital Signs Temp 98.4 F 04/30/21 20:36 Pulse 100 04/30/21 20:36 Resp 19 04/30/21 20:36 BP 168/96 H 04/30/21 20:36 Pulse Ox 95 04/30/21 20:36 - Orders/Labs/Meds Orders: Medication Orders Hydrocodone Bitart/Acetaminophen (Acetaminophen/Hydrocodone 325-5 Mg Tab) 1 tab PO ONETIME ONE Stop: 04/30/21 22:13 Ondansetron HCl (Ondansetron 4 Mg Tab.Dis) 4 mg PO ONETIME ONE Stop: 04/30/21 22:13 Meds: Medications Generic Name Dose Route Start Last Admin Trade Name Freq PRN Reason Stop Dose Admin Hydrocodone Bitart/Acetaminophen 1 tab 04/30/21 22:12 Acetaminophen/Hydrocodone 325-5 Mg Tab PO 04/30/21 22:13 ONETIME ONE Ondansetron HCl 4 mg 04/30/21 22:12 Ondansetron 4 Mg Tab.Dis PO 04/30/21 22:13 ONETIME ONE Discontinued Medications Generic Name Dose Route Start Last Admin Trade Name Freq PRN Reason Stop Dose Admin Trimethoprim/Sulfamethoxazole 2 tab 04/30/21 22:12 Sulfamethoxazole/Trimethoprim 800-160 Mg Tab PO 04/30/21 22:13 ONETIME ONE Departure - Departure Time of Disposition: 22:20 Disposition: Home, Self-Care 01 Condition: Good Clinical Impression: Chronic bacterial skin infection, Chronic pain - Discharge Information Instructions: Managing Chronic Back Pain Referrals: Larry Camacho MD [Primary Care Provider] - Additional Instructions: You were seen and evaluated in ER today secondary to concerns of chronic infection to your back. It appears that you have been worked up and evaluated by multiple different hospitals and specialists and at this time they have recommended no surgical intervention. We will attempt placing you on Bactrim DS 2 tablets twice a day for 10 days to see if that might help your pain. Please talk to your family doctor to see if they can assist you with pain medicines. In the meantime he can take ibuprofen to help you with your pain and discomfort. You will be given 1 dose of Honobia here in the ED. Please return to the ER if you start developing any new or concerning symptoms. The following information is given to patients seen in the emergency department who are being discharged to home. This information is to outline your options for follow-up care. We provide all patients seen in our emergency department with a follow-up referral. The need for follow-up, as well as the timing and circumstances, are variable depending upon the specifics of your emergency department visit. If you don't have a primary care physician on staff, we will provide you with a referral. We always advise you to contact your personal physician following an emergency department visit to inform them of the circumstance of the visit and for follow-up with them and/or the need for any referrals to a consulting specialist. The emergency department will also refer you to a specialist when appropriate. This referral assures that you have the opportunity for follow-up care with a specialist. All of these measure are taken in an effort to provide you with optimal care, which includes your follow-up. Under all circumstances we always encourage you to contact your private physician who remains a resource for coordinating your care. When calling for follow-up care, please make the office aware that this follow-up is from your recent emergency room visit. If for any reason you are refused follow-up, please contact the [facility] Emergency Department at and asked to speak to the emergency department charge nurse. [facility] [address] [place] [address] [place] [address] Sepsis Event Note (ED) - Evaluation Sepsis Screening Result: No Definite Risk - Focused Exam Vital Signs: Vital Signs Temp Pulse Resp BP Pulse Ox 04/30/21 20:36 98.4 F 100 19 168/96 H 95
== END 2021-04-30 22:45 | disposition home or self-care (01) ==
LOC: MW.ED 20:28
DX: G89.29 Other chronic pain (principal); M54.50 Low back pain, unspecified; L08.9 Local infection of the skin and subcutaneous tissue, unspecified; B96.89 Other specified bacterial agents as the cause of diseases classified elsewhere; E11.43 Type 2 diabetes mellitus with diabetic autonomic (poly)neuropathy; K31.84 Gastroparesis; M10.9 Gout, unspecified; J45.909 Unspecified asthma, uncomplicated; Z88.0 Allergy status to penicillin; Z88.5 Allergy status to narcotic agent; Z79.899 Other long term (current) drug therapy
CPT/HCPCS: 99283; A9270

== ENCOUNTER 2021-05-06 16:27 | Emergency (ER) | payer MEDICAID ==
--- NOTE | 2021-05-06 18:30 | EDM.PDOC ---
ED HPI GENERAL MEDICAL PROBLEM - General Chief Complaint: General Stated Complaint: ANESTHESIA CONSULTDEBBIE REFERRAL Time Seen by Provider: 05/06/21 17:47 Source of Information: Reports: Patient History Limitations: Reports: No Limitations - History of Present Illness INITIAL COMMENTS - FREE TEXT/NARRATIVE: Patient is a 25-year-old female with who presented today for and chronic back pain. Patient states that she has been told multiple times she may have a spinal abscess. Patient states she saw multiple doctors she saw a neurosurgeon she saw mariana and Kellie in [place] and she has been told by multiple doctors is nothing to do she states her primary care doctor gave up on her and she no longer has anyone to follow-up with. She is seeking help to try to get her back situated. States she went to the [facility] and told her to come here to be evaluated and possible admitted to have abscess drained we called the [facility] ~Dr. No he states he did not say that the patient showed up at the end of his shift in a wheelchair and would not get up and so she was seen he told her that she did have abscess she should come to the ED to be evaluated but he never gave any recommendations himself about course of treatment. Patient has no other complaints other than her back has been bothering her for some time. Back Pain Score (Numeric/FACES): 7 Neck Pain Score (Numeric/FACES): 8 - Related Data Allergies Allergy/AdvReac Type Severity Reaction Status Date / Time Penicillins Allergy Severe Hives Verified 05/06/21 17:23 morphine Allergy Nausea Verified 05/06/21 17:23 Home Meds: Home Meds Cyclobenzaprine [Flexeril] 10 mg PO TID PRN #21 tab 10/15/20 [Rx] DULoxetine [Cymbalta] 60 mg PO BID 10/15/20 [History] Mometasone/Formoterol [Dulera 50 Mcg-5 Mcg Inhaler] 2 puff INH BID 10/22/20 [History] Ibuprofen 600 mg PO Q6HR PRN #30 tablet 04/30/21 [Rx] Ondansetron [Zofran ODT] 4 mg PO Q6H PRN #12 tab.dis 04/30/21 [Rx] Sulfamethoxazole/Trimethoprim [Bactrim Ds Tablet] 2 each PO BID #40 tablet 04/30/21 [Rx] Past Medical History HEENT History: Reports: None Cardiovascular History: Reports: None Respiratory History: Reports: Asthma Gastrointestinal History: Reports: Other (See Below) Other Gastrointestinal History: gastropheresis Genitourinary History: Reports: None [employer] History: Reports: None Musculoskeletal History: Reports: Back Pain, Chronic, Fibromyalgia, Gout, RA Neurological History: Reports: None Psychiatric History: Reports: None Endocrine/Metabolic History: Reports: Diabetes, Type II Hematologic History: Reports: None Immunologic History: Reports: None Oncologic (Cancer) History: Reports: None Dermatologic History: Reports: None - Infectious Disease History Infectious Disease History: Reports: Chicken Pox, MRSA - Past Surgical History HEENT Surgical History: Reports: None Cardiovascular Surgical History: Reports: None Respiratory Surgical History: Reports: None GI Surgical History: Reports: Other (See Below) Other GI Surgeries/Procedures: Radition so spleen Female Surgical History: Reports: None Endocrine Surgical History: Reports: None Neurological Surgical History: Reports: None Musculoskeletal Surgical History: Reports: Other (See Below) Other Musculoskeletal Surgeries/Procedures:: "screws placed in back" ,multile surgeries to legs- veins & MRSA surgeries Oncologic Surgical History: Reports: None Dermatological Surgical History: Reports: None Social & Family History - Family History Family Medical History: No Pertinent Family History - Caffeine Use Caffeine Use: Reports: None - Recreational Drug Use Recreational Drug Use: Yes Drug Use in Last 12 Months: Yes Recreational Drug Type: Reports: Marijuana/Hashish ED ROS GENERAL - Review of Systems Review Of Systems: See Below Constitutional: Reports: No Symptoms HEENT: Reports: No Symptoms Respiratory: Reports: No Symptoms Cardiovascular: Reports: No Symptoms Endocrine: Reports: No Symptoms GI/Abdominal: Reports: No Symptoms : Reports: No Symptoms Musculoskeletal: Reports: Back Pain Skin: Reports: No Symptoms Neurological: Reports: No Symptoms Psychiatric: Reports: No Symptoms Hematologic/Lymphatic: Reports: No Symptoms Immunologic: Reports: No Symptoms ED EXAM, GENERAL - Physical Exam Exam: See Below Exam Limited By: No Limitations General Appearance: Alert, WD/WN, No Apparent Distress Ears: Normal External Exam, Normal TMs Head: Atraumatic, Normocephalic Neck: Normal Inspection, Supple, Non-Tender Respiratory/Chest: No Respiratory Distress, Lungs Clear Cardiovascular: Normal Peripheral Pulses, Regular Rate, Rhythm GI/Abdominal: Normal Bowel Sounds, Soft, Non-Tender Back Exam: Normal Inspection, Full Range of Motion, Paraspinal Tenderness, Other (Surgical scar well-healed no redness no drainage) Neurological: Alert, Oriented, CN II-XII Intact, Normal Cognition, Normal Gait Course - Vital Signs Last Recorded V/S: Last Vital Signs Temp 97.7 F 05/06/21 17:48 Pulse 94 05/06/21 17:48 Resp 18 05/06/21 17:48 BP 134/68 05/06/21 17:48 Pulse Ox 96 05/06/21 17:48 Departure - Departure Time of Disposition: 18:30 Disposition: Home, Self-Care 01 Condition: Good Clinical Impression: General medical exam - Discharge Information *PRESCRIPTION DRUG MONITORING PROGRAM REVIEWED*: Not Applicable *COPY OF PRESCRIPTION DRUG MONITORING REPORT IN PATIENT FELA: Not Applicable Instructions: Medical Screening Exam Referrals: Larry Camacho MD [Primary Care Provider] - Additional Instructions: You were seen today because she has concerns that you may have epidural abscess in your spine you have had images done here there is no documentation that you do have abscess in your spine he also mentioned to be seen providers at other hospitals including neurosurgeon and he also stated no surgical invention at this hospital we do not have any specialist here that can help or team to your matter we recommend continue to see specialist possibly in [facility] or any [facility] that has a large healthcare system that does have a neurosurgeon on staff. If you do have any other concerning signs or symptoms please feel free to return to the ED. The following information is given to patients seen in the emergency department who are being discharged to home. This information is to outline your options for follow-up care. We provide all patients seen in our emergency department with a follow-up referral. The need for follow-up, as well as the timing and circumstances, are variable depending upon the specifics of your emergency department visit. If you don't have a primary care physician on staff, we will provide you with a referral. We always advise you to contact your personal physician following an emergency department visit to inform them of the circumstance of the visit and for follow-up with them and/or the need for any referrals to a consulting speci alist. The emergency department will also refer you to a specialist when appropriate. This referral assures that you have the opportunity for follow-up care with a specialist. All of these measure are taken in an effort to provide you with optimal care, which includes your follow-up. Under all circumstances we always encourage you to contact your private physician who remains a resource for coordinating your care. When calling for follow-up care, please make the office aware that this follow-up is from your recent emergency room visit. If for any reason you are refused follow-up, please contact the [facility] Emergency Department at and asked to speak to the emergency department charge nurse. Please follow up with your primary care physician. If you do not have a primary care physician, see below: [facility] [address] [place] [id number] [facility] [address] [place] [address] Sepsis Event Note (ED) - Evaluation Sepsis Screening Result: No Definite Risk - Focused Exam Vital Signs: Vital Signs Temp Pulse Resp BP Pulse Ox 05/06/21 17:48 97.7 F 94 18 134/68 96 05/06/21 17:08 97.5 F 88 20 120/69 96 - Assessment/Plan Plan: Patient is a 25-year-old female who presented today for evaluation of her back. Patient had issues with it for the past 16-month as she got her epidural doing a delivery. Patient seen here multiple times for this with the multiple images did not see any abscesses in the patient spine she also reports she seen neurosurgeon to multiple other physicians as well and she has been told the same that there is nothing to do for her from a surgical standpoint we have instructed patient here there is no neurosurgeon here we do not have interventional radiology either and also there have been no images that show that she has has abscess. She is also had blood cultures have not grown anything we recommend the patient continue with the outpatient treatment as she may need a specialist that is not available in the [facility].
[2021-05-06] MEDS ORDERED: Acetaminophen/HYDROcodone 325-5 MG Tab PO ONE (18:50)
== END 2021-05-06 18:59 | disposition home or self-care (01) ==
LOC: MW.ED 16:27
DX: Z00.8 Encounter for other general examination (principal); E11.9 Type 2 diabetes mellitus without complications; Z88.0 Allergy status to penicillin; Z88.5 Allergy status to narcotic agent
CPT/HCPCS: 99283; A9270

== ENCOUNTER 2021-06-11 04:39 | Emergency (ER) | payer MEDICAID ==
[2021-06-11] MEDS ORDERED: Sodium Chloride 0.9% 10 ML Syringe FLUSH PRN (04:47)
[2021-06-11] MEDS ORDERED: Sodium Chloride 0.9% 1,000 ML IV ONE (04:47)
[2021-06-11] MEDS ORDERED: fentaNYL 50 MCG/ML SDV IVPUSH ONE (04:47)
[2021-06-11] MEDS ORDERED: Ondansetron 4 MG/2 ML SDV IVPUSH ONE ×2 (04:47→06:18)
[2021-06-11] MEDS ORDERED: Sodium Chloride 0.9% 2.5 ML Syringe FLUSH PRN (04:47)
--- NOTE | 2021-06-11 04:47 | EDM.PDOC ---
ED HPI GENERAL MEDICAL PROBLEM - General Chief Complaint: Abdominal Pain Stated Complaint: ABDOMINAL PAIN Time Seen by Provider: 06/11/21 04:45 - History of Present Illness INITIAL COMMENTS - FREE TEXT/NARRATIVE: HISTORY AND PHYSICAL: History of present illness: This is a 25-year-old female with history significant for fibromyalgia, rheumatoid arthritis, gastroparesis, status post cholecystectomy, status post C- section, who presents ER today secondary to nausea and vomiting started this morning. Patient reports no recent fevers, shakes, chills. Patient has any cough cold or rhinorrhea. Patient reports that have been having nausea vomiting and some loose stools. Patient reports last night she had 3 alcoholic beverages which is unusually high for her. Patient denies any melena or bright red blood per rectum. Patient has any coffee-ground emesis or hematemesis. Patient denies any dysuria, frequency, urgency. Patient reports she has abdominal pain greatest in the left upper quadrant. Review of systems: As per history of present illness and below otherwise all systems reviewed and negative. Past medical history: As per history of present illness and as reviewed below otherwise noncontributory. Surgical history: As per history of present illness and as reviewed below otherwise noncontributory. Social history: No reported history of drug abuse. Family history: As per history of present illness and as reviewed below otherwise noncontributory. Physical exam: This patient was seen and evaluated during the 2019 SARS-CoV-2 novel coronavirus pandemic period. Community viral transmission is ongoing at time of this encounter and the emergency department is operating under pandemic response procedures. Constitutional: Patient is oriented to person, place, and time. Appears well- developed and well-nourished. No distress. HEENT: Moist mucous membranes Head: Normocephalic and atraumatic Eyes: Right eye exhibits no discharge. Left eye exhibits no discharge. No scleral icterus Neck: Normal range of motion. No tracheal deviation present. Cardiovascular: Normal rate and regular rhythm. Pulmonary: Effort normal, no respiratory distress. Abd: Soft, nondistended, no rebound/guarding, no psoas or obturator signs, no tenderness at Mcberney's point, no Simon's sign. Pt does not present with an exam that would be consistent with an acute surgical abdomen at this time. Pain greatest in the left upper quadrant. No pain in the lower abdomen or right side of her abdomen. Musculoskeletal: Normal range of motion Neurologic: Alert and oriented to person, place and time. Skin: Artesian, warm and dry. Psychiatric: Normal mood and affect. Behavior is normal. Judgment and thought content normal. Nursing note and vital signs have been reviewed Assessment and plan: [25-year-old female who presents ER today secondary to left upper quadrant abdominal pain with associated nausea and vomiting started this morning. Patient's labs are all within normal limits. Patient normal CBC, CMP, urinalysis, lipase. We did obtain a CT scan of the abdomen pelvis for further evaluation. Patient CT scan did not show any acute pathology. While in the ED, the patient was given a dose of fentanyl, Zofran and reevaluated. I reevaluated the patient multiple times during her visit. Her last reevaluation was at 645. Patient was sleeping comfortably. Patient had no complaints of pain reports that the medication completely resolved her discomfort. Patient reports that she believes that the alcohol that she drank last night exacerbated her gastroparesis. Patient feels comfortable with the plan to be discharged home and continue her outpatient evaluation for gastroparesis. Reassessment at the time of disposition demonstrates that the patient is in no acute distress. The patient has remained stable throughout the entire ED visit and is without objective evidence for acute process requiring urgent intervention or hospitalization. The patient is stable for discharge, counseling is provided as documented above, discussed symptomatic treatment and specific conditions for return. I have spoken with the patient/caregiver and discussed todays findings, in addition to providing specific details for the plan of care. Questions are answered and there is agreement with the plan. Definitive disposition and diagnosis as appropriate pending reevaluation and review of above. Bilateral Upper Abdomen Pain Score (Numeric/FACES): 9 - Related Data Allergies Allergy/AdvReac Type Severity Reaction Status Date / Time Penicillins Allergy Severe Hives Verified 06/11/21 04:46 morphine Allergy Nausea Verified 06/11/21 04:46 Home Meds: Home Meds Cyclobenzaprine [Flexeril] 10 mg PO TID PRN #21 tab 10/15/20 [Rx] DULoxetine [Cymbalta] 60 mg PO BID 10/15/20 [History] Mometasone/Formoterol [Dulera 50 Mcg-5 Mcg Inhaler] 2 puff INH BID 10/22/20 [History] Ibuprofen 600 mg PO Q6HR PRN #30 tablet 04/30/21 [Rx] Ondansetron [Zofran ODT] 4 mg PO Q6H PRN #12 tab.dis 04/30/21 [Rx] traZODone 1 tab PO BEDTIME 06/11/21 [History] Past Medical History HEENT History: Reports: None Cardiovascular History: Reports: None Respiratory History: Reports: Asthma Gastrointestinal History: Reports: Other (See Below) Other Gastrointestinal History: gastropheresis Genitourinary History: Reports: None [employer] SUPERINTENDENT History: Reports: None Musculoskeletal History: Reports: Back Pain, Chronic, Fibromyalgia, Gout, RA Neurological History: Reports: None Psychiatric History: Reports: None Endocrine/Metabolic History: Reports: Diabetes, Type II Hematologic History: Reports: None Immunologic History: Reports: None Oncologic (Cancer) History: Reports: None Dermatologic History: Reports: None - Infectious Disease History Infectious Disease History: Reports: Chicken Pox, MRSA - Past Surgical History HEENT Surgical History: Reports: None Cardiovascular Surgical History: Reports: None Respiratory Surgical History: Reports: None GI Surgical History: Reports: Other (See Below) Other GI Surgeries/Procedures: Radition so spleen Female Surgical History: Reports: None Endocrine Surgical History: Reports: None Neurological Surgical History: Reports: None Musculoskeletal Surgical History: Reports: Other (See Below) Other Musculoskeletal Surgeries/Procedures:: "screws placed in back" ,multile surgeries to legs- veins & MRSA surgeries Oncologic Surgical History: Reports: None Dermatological Surgical History: Reports: None Social & Family History - Family History Family Medical History: No Pertinent Family History - Caffeine Use Caffeine Use: Reports: None ED ROS GENERAL - Review of Systems Review Of Systems: See Below ED EXAM, GENERAL - Physical Exam Exam: See Below Course - Vital Signs Last Recorded V/S: Last Vital Signs Temp 97 F 06/11/21 04:50 Pulse 72 06/11/21 05:50 Resp 16 06/11/21 05:50 BP 132/55 L 06/11/21 05:50 Pulse Ox 96 06/11/21 05:50 - Orders/Labs/Meds Orders: Active Orders 24 hr Category Date Time Status Sodium Chloride 0.9% [Saline Flush] Med 06/11/21 04:47 Active 10 ml FLUSH ASDIRECTED PRN Sodium Chloride 0.9% [Saline Flush] Med 06/11/21 04:47 Active 2.5 ml FLUSH ASDIRECTED PRN Saline Lock Insert [OM.PC] Stat Oth 06/11/21 04:47 Ordered Medication Orders Sodium Chloride (Sodium Chloride 0.9% 10 Ml Syringe) 10 ml FLUSH ASDIRECTED PRN PRN Reason: Keep Vein Open Last Admin: 06/11/21 05:10 Dose: 10 ml Documented by: EVERT Sodium Chloride (Sodium Chloride 0.9% 2.5 Ml Syringe) 2.5 ml FLUSH ASDIRECTED PRN PRN Reason: Keep Vein Open Last Admin: 06/11/21 05:09 Dose: 2.5 ml Documented by: EVERT Labs: Laboratory Tests 06/11/21 06/11/21 06/11/21 Range/Units 04:50 04:50 05:40 WBC 13.93 H (4.0-11.0) K/uL RBC 4.60 (4.30-5.90) M/uL Hgb 14.1 (12.0-16.0) g/dL Hct 41.4 (36.0-46.0) % MCV 90.0 (80.0-98.0) fL MCH 30.7 (27.0-32.0) pg MCHC 34.1 (31.0-37.0) g/dL RDW Std Deviation 45.0 (28.0-62.0) fl RDW Coeff of Ezra 14 (11.0-15.0) % Plt Count 326 (150-400) K/uL MPV 12.10 H (7.40-12.00) fL Neut % (Auto) 71.4 (48.0-80.0) % Lymph % (Auto) 20.8 (16.0-40.0) % Andrew % (Auto) 5.2 (0.0-15.0) % Eos % (Auto) 2.5 (0.0-7.0) % Baso % (Auto) 0.1 (0.0-1.5) % Neut # (Auto) 9.9 H (1.4-5.7) K/uL Lymph # (Auto) 2.9 H (0.6-2.4) K/uL Andrew # (Auto) 0.7 (0.0-0.8) K/uL Eos # (Auto) 0.4 (0.0-0.7) K/uL Baso # (Auto) 0.0 (0.0-0.1) K/uL Nucleated RBC % 0.0 /100WBC Nucleated RBCs # 0 K/uL Sodium 138 (136-145) mmol/L Potassium 3.8 (3.5-5.1) mmol/L Chloride 104 (98-107) mmol/L Carbon Dioxide 21.6 (21.0-32.0) mmol/L BUN 7 (7.0-18.0) mg/dL Creatinine 0.9 (0.6-1.0) mg/dL Est Cr Clr Drug Dosing 69.83 mL/min Estimated GFR (MDRD) > 60.0 ml/min Glucose 152 H (74-106) mg/dL Calcium 9.1 (8.5-10.1) mg/dL Total Bilirubin 0.4 (0.2-1.0) mg/dL AST 20 (15-37) IU/L ALT 36 (14-63) IU/L Alkaline Phosphatase 82 (46-116) U/L Total Protein 7.6 (6.4-8.2) g/dL Albumin 3.3 L (3.4-5.0) g/dL Globulin 4.3 H (2.6-4.0) g/dL Albumin/Globulin Ratio 0.8 L (0.9-1.6) Lipase 36 L (73-393) U/L Urine Color YELLOW Urine Appearance CLEAR Urine pH 5.5 (5.0-8.0) Ur Specific Edmond >= 1.030 (1.001-1.035) Urine Protein 100 H (NEGATIVE) mg/dL Urine Glucose (UA) NEGATIVE (NEGATIVE) mg/dL Urine Ketones NEGATIVE (NEGATIVE) mg/dL Urine Occult Blood LARGE H (NEGATIVE) Urine Nitrite NEGATIVE (NEGATIVE) Urine Bilirubin SMALL H (NEGATIVE) Urine Urobilinogen 0.2 (<2.0) EU/dL Ur Leukocyte Esterase NEGATIVE (NEGATIVE) Urine RBC 5-10 (0-2/HPF) Urine WBC 0-3 (0-5/HPF) Ur Epithelial Cells MANY (NONE-FEW) Urine Bacteria FEW (NEGATIVE) Urine Mucus MODERATE (NONE-MOD) Urine Yeast MODERATE Urine HCG, Qual (NEGATIVE) Ethyl Alcohol < 3.0 mg/dL 06/11/21 Range/Units 05:40 WBC (4.0-11.0) K/uL RBC (4.30-5.90) M/uL Hgb (12.0-16.0) g/dL Hct (36.0-46.0) % MCV (80.0-98.0) fL MCH (27.0-32.0) pg MCHC (31.0-37.0) g/dL RDW Std Deviation (28.0-62.0) fl RDW Coeff of Ezra (11.0-15.0) % Plt Count (150-400) K/uL MPV (7.40-12.00) fL Neut % (Auto) (48.0-80.0) % Lymph % (Auto) (16.0-40.0) % Andrew % (Auto) (0.0-15.0) % Eos % (Auto) (0.0-7.0) % Baso % (Auto) (0.0-1.5) % Neut # (Auto) (1.4-5.7) K/uL Lymph # (Auto) (0.6-2.4) K/uL Andrew # (Auto) (0.0-0.8) K/uL Eos # (Auto) (0.0-0.7) K/uL Baso # (Auto) (0.0-0.1) K/uL Nucleated RBC % /100WBC Nucleated RBCs # K/uL Sodium (136-145) mmol/L Potassium (3.5-5.1) mmol/L Chloride (98-107) mmol/L Carbon Dioxide (21.0-32.0) mmol/L BUN (7.0-18.0) mg/dL Creatinine (0.6-1.0) mg/dL Est Cr Clr Drug Dosing mL/min Estimated GFR (MDRD) ml/min Glucose (74-106) mg/dL Calcium (8.5-10.1) mg/dL Total Bilirubin (0.2-1.0) mg/dL AST (15-37) IU/L ALT (14-63) IU/L Alkaline Phosphatase (46-116) U/L Total Protein (6.4-8.2) g/dL Albumin (3.4-5.0) g/dL Globulin (2.6-4.0) g/dL Albumin/Globulin Ratio (0.9-1.6) Lipase (73-393) U/L Urine Color Urine Appearance Urine pH (5.0-8.0) Ur Specific Edmond (1.001-1.035) Urine Protein (NEGATIVE) mg/dL Urine Glucose (UA) (NEGATIVE) mg/dL Urine Ketones (NEGATIVE) mg/dL Urine Occult Blood (NEGATIVE) Urine Nitrite (NEGATIVE) Urine Bilirubin (NEGATIVE) Urine Urobilinogen (<2.0) EU/dL Ur Leukocyte Esterase (NEGATIVE) Urine RBC (0-2/HPF) Urine WBC (0-5/HPF) Ur Epithelial Cells (NONE-FEW) Urine Bacteria (NEGATIVE) Urine Mucus (NONE-MOD) Urine Yeast Urine HCG, Qual NEGATIVE (NEGATIVE) Ethyl Alcohol mg/dL Meds: Medications Generic Name Dose Route Start Last Admin Trade Name Gale PRN Reason Stop Dose Admin Sodium Chloride 10 ml 06/11/21 04:47 06/11/21 05:10 Sodium Chloride 0.9% 10 Ml Syringe FLUSH 10 ml ASDIRECTED PRN Administration Keep Vein Open Sodium Chloride 2.5 ml 06/11/21 04:47 06/11/21 05:09 Sodium Chloride 0.9% 2.5 Ml Syringe FLUSH 2.5 ml ASDIRECTED PRN Administration Keep Vein Open Discontinued Medications Generic Name Dose Route Start Last Admin Trade Name Gale PRN Reason Stop Dose Admin Fentanyl 50 mcg 06/11/21 04:47 06/11/21 05:04 Fentanyl 50 Mcg/Ml Sdv IVPUSH 06/11/21 04:48 50 mcg ONETIME ONE Administration Sodium Chloride 1,000 mls @ 999 mls/hr 06/11/21 04:47 06/11/21 05:04 Normal Saline IV 06/11/21 05:47 999 mls/hr .Bolus ONE Administration Ondansetron HCl 4 mg 06/11/21 04:47 06/11/21 05:04 Ondansetron 4 Mg/2 Ml Sdv IVPUSH 06/11/21 04:48 4 mg ONETIME ONE Administration Ondansetron HCl 4 mg 06/11/21 06:18 06/11/21 06:26 Ondansetron 4 Mg/2 Ml Sdv IVPUSH 06/11/21 06:19 4 mg ONETIME ONE Administration Departure - Departure Time of Disposition: 06:49 Disposition: Home, Self-Care 01 Condition: Good Clinical Impression: Gastroparesis, Abdominal pain, left upper quadrant - Discharge Information Instructions: Gastroparesis, Abdominal Pain, Adult, [id number] Forms: ED Department Discharge Additional Instructions: You were seen and evaluated in the ER today secondary to pain in your abdomen. Your blood tests as well as your CT scan have all been unremarkable and have not revealed any explanation for the pain that you are experiencing. At this time, it appears that the pain has resolved. You will be discharged home with instructions to follow-up with your doctor to further evaluate the pain if it should return. The following information is given to patients seen in the emergency department who are being discharged to home. This information is to outline your options for follow-up care. We provide all patients seen in our emergency department with a follow-up referral. The need for follow-up, as well as the timing and circumstances, are variable depending upon the specifics of your emergency department visit. If you don't have a primary care physician on staff, we will provide you with a referral. We always advise you to contact your personal physician following an emergency department visit to inform them of the circumstance of the visit and for follow-up with them and/or the need for any referrals to a consulting specialist. The emergency department will also refer you to a specialist when appropriate. This referral assures that you have the opportunity for follow-up care with a specialist. All of these measure are taken in an effort to provide you with optimal care, which includes your follow-up. Under all circumstances we always encourage you to contact your private physician who remains a resource for coordinating your care. When calling for follow-up care, please make the office aware that this follow-up is from your recent emergency room visit. If for any reason you are refused follow-up, please contact the [facility] Emergency Department at and asked to speak to the emergency department charge nurse. Radha Santoyo [facility] - Primary Care [address] [place] [id number] [id number] Sepsis Event Note (ED) - Focused Exam Vital Signs: Vital Signs Temp Pulse Resp BP Pulse Ox 06/11/21 05:50 72 16 132/55 L 96 06/11/21 04:50 97 F 79 18 149/91 H 97 - My Orders Last 24 Hours: My Active Orders 06/11/21 04:47 Sodium Chloride 0.9% [Saline Flush] 10 ml FLUSH ASDIRECTED PRN Sodium Chloride 0.9% [Saline Flush] 2.5 ml FLUSH ASDIRECTED PRN Saline Lock Insert [OM.PC] Stat - Assessment/Plan Last 24 Hours: My Active Orders 06/11/21 04:47 Sodium Chloride 0.9% [Saline Flush] 10 ml FLUSH ASDIRECTED PRN Sodium Chloride 0.9% [Saline Flush] 2.5 ml FLUSH ASDIRECTED PRN Saline Lock Insert [OM.PC] Stat
[2021-06-11 05:19] LABS: BLOOD UREA NITROGEN,BUN 7 mg/dL (7.0-18.0); CARBON DIOXIDE,CO2 21.6 mmol/L (21.0-32.0); CHLORIDE,CL 104 mmol/L (98-107); GLUCOSE RANDOM 152 mg/dL (74-106); LIPASE 36 U/L (73-393); POTASSIUM,K 3.8 mmol/L (3.5-5.1); SODIUM,NA 138 mmol/L (136-145)
--- NOTE | 2021-06-11 06:44 | CT ---
INDICATION: Left upper quadrant abdominal pain with nausea and vomiting COMPARISON: March 11, 2021 TECHNIQUE: CT examination of the abdomen and pelvis was performed without intravenous contrast. Thin section axial images were obtained from the lung bases through the pubic symphysis. Oral contrast was not administered. Please note that all CT scans at this facility use dose modulation, iterative reconstruction, and/or weight-based dosing when appropriate to reduce radiation dose to as low as reasonably achievable. FINDINGS: LUNG BASES: Lung bases are unremarkable. Calcifications in the left breast probably related to fat necrosis or dystrophic calcifications. They were present previously.The heart size is normal at the lung bases. LIVER/BILIARY SYSTEM:Steatosis. No focal mass or biliary ductal dilatation.Surgically absent gallbladder ADRENALS: Normal non-contrast appearance KIDNEYS, URETERS and BLADDER:The kidneys appear normal given lack of intravenous contrast. No visible mass, calculus or hydronephrosis. The ureters and bladder as visualized appear normal. SPLEEN:Normal non-contrast appearance. Splenic vascular region embolic coils again identified. PANCREAS: Normal non-contrast appearance. RETROPERITONEUM and MESENTERY: There is no mass, adenopathy or aortic aneurysm. IVC filter noted GASTROINTESTINAL SYSTEM: There is no evidence of diverticulitis, colitis, mechanical obstruction, or appendicitis. The small bowel as visualized appears normal. PELVIS: No mass, adenopathy or free fluid. OSSEOUS STRUCTURES and ABDOMINAL WALL: There is an age-appropriate appearance of the osseous structures.No significant abdominal wall defect. OTHER: No free fluid or free air. IMPRESSION: No acute finding and no visible explanation for pain. Stable chronic findings as described above. Please note that all CT scans at this facility use dose modulation, iterative reconstruction, and/or weight-based dosing when appropriate to reduce radiation dose to as low as reasonably achievable. Dictated by Ja Lund MD @ 06/11/2021 6:42:19 AM (Electronically Signed)
== END 2021-06-11 07:10 | disposition home or self-care (01) ==
LOC: MW.ED 04:39
DX: K31.84 Gastroparesis (principal); M06.9 Rheumatoid arthritis, unspecified; E11.9 Type 2 diabetes mellitus without complications; Z79.84 Long term (current) use of oral hypoglycemic drugs; Z79.899 Other long term (current) drug therapy; Z88.0 Allergy status to penicillin; Z88.5 Allergy status to narcotic agent; Z90.49 Acquired absence of other specified parts of digestive tract
CPT/HCPCS: 74176; 80053; 80307; 81001; 81025; 83690; 85025; 96374; 96375; 96376; 99284; J2405; J3010; J7030

== ENCOUNTER 2021-06-21 09:47 | Emergency (ER) | payer MEDICAID ==
[2021-06-21] MEDS ORDERED: Sodium Chloride 0.9% 1,000 ML IV ONE (09:58)
[2021-06-21] MEDS ORDERED: Haloperidol Lactate 5 MG/ML SDV IM ONE (10:02)
[2021-06-21] MEDS ORDERED: diphenhydrAMINE 50 MG/ML SDV IVPUSH ONE (10:19)
[2021-06-21] MEDS ORDERED: diphenhydrAMINE 50 MG/ML SDV ONE (10:20)
[2021-06-21 10:33] LABS: BLOOD UREA NITROGEN,BUN 9 mg/dL (7.0-18.0); CARBON DIOXIDE,CO2 24.7 mmol/L (21.0-32.0); CHLORIDE,CL 103 mmol/L (98-107); GLUCOSE RANDOM 131 mg/dL (74-106); LIPASE 36 U/L (73-393); POTASSIUM,K 4.4 mmol/L (3.5-5.1); SODIUM,NA 138 mmol/L (136-145)
== END 2021-06-21 11:01 | disposition home or self-care (01) ==
LOC: MW.ED 09:47
DX: R11.2 Nausea with vomiting, unspecified (principal); J45.909 Unspecified asthma, uncomplicated; E11.43 Type 2 diabetes mellitus with diabetic autonomic (poly)neuropathy; K31.84 Gastroparesis; Z72.0 Tobacco use; Z88.0 Allergy status to penicillin; Z88.5 Allergy status to narcotic agent; Z79.899 Other long term (current) drug therapy
CPT/HCPCS: 36415; 80053; 81001; 81025; 83690; 85025; 87086; 96372; 96374; 99284-25; J1200; J1630; J7030

== ENCOUNTER 2021-07-30 10:32 | Emergency (ER) | payer MEDICAID | END 2021-07-30 11:48 | disposition home or self-care (01) | LOC: MW.ED 10:32 | DX: K14.0 Glossitis (principal); J45.909 Unspecified asthma, uncomplicated; K21.9 Gastro-esophageal reflux disease without esophagitis; E11.9 Type 2 diabetes mellitus without complications; Z79.899 Other long term (current) drug therapy; Z88.0 Allergy status to penicillin; Z88.5 Allergy status to narcotic agent | CPT/HCPCS: 99282 ==

== ENCOUNTER 2021-08-13 14:53 | Emergency (ER) | payer MEDICAID ==
[2021-08-13] MEDS ORDERED: Metoclopramide 10 MG/2 ML SDV IVPUSH ONE (15:15)
[2021-08-13] MEDS ORDERED: Sodium Chloride 0.9% 1,000 ML IV ONE (15:15)
[2021-08-13] MEDS ORDERED: diphenhydrAMINE 50 MG/ML SDV IVPUSH ONE (15:15)
[2021-08-13] MEDS ORDERED: Ketorolac 30 MG/ML SDV IVPUSH ONE (15:15)
[2021-08-13 16:02] LABS: BLOOD UREA NITROGEN,BUN 11 mg/dL (7.0-18.0); CARBON DIOXIDE,CO2 24.8 mmol/L (21.0-32.0); CHLORIDE,CL 103 mmol/L (98-107); GLUCOSE RANDOM 113 mg/dL (74-106); LIPASE 61 U/L (73-393); SODIUM,NA 138 mmol/L (136-145)
== END 2021-08-13 16:06 | disposition left against medical advice (07) ==
LOC: MW.ED 14:53
DX: K31.84 Gastroparesis (principal); K21.9 Gastro-esophageal reflux disease without esophagitis; E11.9 Type 2 diabetes mellitus without complications; Z88.8 Allergy status to other drugs, medicaments and biological substances; Z88.0 Allergy status to penicillin; Z88.5 Allergy status to narcotic agent; Z79.899 Other long term (current) drug therapy
CPT/HCPCS: 36415; 80053; 83605; 83690; 83735; 84703; 85025; 96374; 96375; 99284; J1200; J1885; J2765; J7030

== ENCOUNTER 2021-08-28 11:38 | Emergency (ER) | payer MEDICAID ==
[2021-08-28] MEDS ORDERED: Metoclopramide 10 MG/2 ML SDV IVPUSH ONE (11:50)
[2021-08-28] MEDS ORDERED: Ketorolac 30 MG/ML SDV IVPUSH ONE (11:50)
[2021-08-28] MEDS ORDERED: Sodium Chloride 0.9% 1,000 ML IV ONE (11:50)
[2021-08-28] MEDS ORDERED: Sodium Chloride 0.9% 2.5 ML Syringe FLUSH PRN (11:50)
[2021-08-28] MEDS ORDERED: Sodium Chloride 0.9% 10 ML Syringe FLUSH PRN (11:50)
[2021-08-28] MEDS ORDERED: diphenhydrAMINE 50 MG/ML SDV IVPUSH ONE (11:50)
== END 2021-08-28 12:20 | disposition left against medical advice (07) ==
LOC: MW.ED 11:38
DX: K29.70 Gastritis, unspecified, without bleeding (principal); E11.43 Type 2 diabetes mellitus with diabetic autonomic (poly)neuropathy; K31.84 Gastroparesis; Z88.0 Allergy status to penicillin; Z88.5 Allergy status to narcotic agent
CPT/HCPCS: 96374; 96375; 99284; J1200; J1885; J2765; J7030; 99283

== ENCOUNTER 2021-09-17 18:23 | Emergency (ER) | payer MEDICAID ==
[2021-09-17] MEDS ORDERED: Metoclopramide 10 MG/2 ML SDV IVPUSH ONE (18:36)
[2021-09-17] MEDS ORDERED: Ondansetron 4 MG/2 ML SDV IVPUSH ONE (18:36)
[2021-09-17] MEDS ORDERED: Sodium Chloride 0.9% 1,000 ML IV ONE (18:36)
[2021-09-17] MEDS ORDERED: Famotidine 20 MG/2 ML SDV IVPUSH ONE (18:36)
[2021-09-17] MEDS ORDERED: diphenhydrAMINE 50 MG/ML SDV IVPUSH ONE (18:36)
[2021-09-17 19:09] LABS: BLOOD UREA NITROGEN,BUN 10 mg/dL (7.0-18.0); CARBON DIOXIDE,CO2 24.8 mmol/L (21.0-32.0); CHLORIDE,CL 101 mmol/L (98-107); GLUCOSE RANDOM 115 mg/dL (74-106); LIPASE 27 U/L (73-393); POTASSIUM,K 3.8 mmol/L (3.5-5.1); SODIUM,NA 136 mmol/L (136-145)
[2021-09-17] MEDS ORDERED: Loperamide 2 MG Cap PO STA (19:25)
[2021-09-17 19:39] LABS: CORONAVIRUS COVID-19 NAA NEGATIVE (NEGATIVE); INFLUENZA A NAA NEGATIVE (NEGATIVE); INFLUENZA B NAA NEGATIVE (NEGATIVE)
== END 2021-09-17 20:22 | disposition home or self-care (01) ==
LOC: MW.ED 18:23
DX: R11.2 Nausea with vomiting, unspecified (principal); R19.7 Diarrhea, unspecified; K21.9 Gastro-esophageal reflux disease without esophagitis; E11.9 Type 2 diabetes mellitus without complications; Z90.49 Acquired absence of other specified parts of digestive tract; Z87.19 Personal history of other diseases of the digestive system; Z79.899 Other long term (current) drug therapy; Z88.0 Allergy status to penicillin; Z88.5 Allergy status to narcotic agent; Z20.822 Contact with and (suspected) exposure to COVID-19
CPT/HCPCS: 0240U; 36415; 80053; 81001; 81025; 83690; 83735; 85025; 86140; 96374; 96375; 99284; A9270; J1200; J2405; J2765; J3490; J7030; 99283

== ENCOUNTER → 2021-09-19 | Emergency (ER) | payer MEDICAID ==
[~2021-09-19] MED LIST: Dicyclomine 10 MG Cap PO ONE; Iopamidol 755 MG/ML 500 ML Multipack Bottle IVPUSH STA; Sodium Chloride 0.9% 1,000 ML IV ONE; Sulfamethoxazole/Trimethoprim 800-160 MG Tab PO ONE
[2021-09-19 11:22] LABS: BLOOD UREA NITROGEN,BUN 10 mg/dL (7.0-18.0); CARBON DIOXIDE,CO2 20.6 mmol/L (21.0-32.0); CHLORIDE,CL 104 mmol/L (98-107); GLUCOSE RANDOM 112 mg/dL (74-106); SODIUM,NA 139 mmol/L (136-145)
== END | disposition home or self-care (01) ==
LOC: MW.ED 10:50
DX: N39.0 Urinary tract infection, site not specified (principal); R19.7 Diarrhea, unspecified; E11.43 Type 2 diabetes mellitus with diabetic autonomic (poly)neuropathy; K31.84 Gastroparesis; Z88.0 Allergy status to penicillin; Z88.5 Allergy status to narcotic agent
CPT/HCPCS: 36415; 74177; 80053; 81001; 85025; 87045; 87046; 87328; 87329; 87449; 87899; 99285; A9270; J7030; Q9967; 99283

== ENCOUNTER 2021-10-06 02:06 | Emergency (ER) | payer MEDICAID ==
[2021-10-06] MEDS ORDERED: Ondansetron 4 MG/2 ML SDV IVPUSH ONE (02:20)
[2021-10-06] MEDS ORDERED: diphenhydrAMINE 50 MG/ML SDV IVPUSH ONE (02:20)
[2021-10-06] MEDS ORDERED: Dextrose 5%-Lactated Ringers 1,000 ML IV SCH (02:30)
[2021-10-06] MEDS ORDERED: Dextrose 5%-Lactated Ringers 1,000 ML IV STA (02:33)
[2021-10-06 02:45] LABS: BLOOD UREA NITROGEN,BUN 14 mg/dL (7.0-18.0); CARBON DIOXIDE,CO2 23.9 mmol/L (21.0-32.0); CHLORIDE,CL 105 mmol/L (98-107); GLUCOSE RANDOM 134 mg/dL (74-106); LIPASE 42 U/L (73-393); SODIUM,NA 139 mmol/L (136-145)
== END 2021-10-06 05:24 | disposition home or self-care (01) ==
LOC: MW.ED 02:06
DX: R10.9 Unspecified abdominal pain (principal); R11.2 Nausea with vomiting, unspecified; E11.43 Type 2 diabetes mellitus with diabetic autonomic (poly)neuropathy; K31.84 Gastroparesis; K21.9 Gastro-esophageal reflux disease without esophagitis; I10 Essential (primary) hypertension; Z88.0 Allergy status to penicillin; Z88.5 Allergy status to narcotic agent
CPT/HCPCS: 36415; 80053; 81001; 81025; 83605; 83690; 85025; 85610; 93005; 96374; 96375; 99284; J1200; J2405; J7121

== ENCOUNTER 2021-10-11 08:44 | Emergency (ER) | payer MEDICAID ==
[2021-10-11] MEDS ORDERED: Prochlorperazine 10 MG/2 ML SDV IM STA (09:22)
[2021-10-11] MEDS ORDERED: Ketorolac 30 MG/ML SDV IM ONE (09:23)
[2021-10-11 11:11] LABS: BLOOD UREA NITROGEN,BUN 17 mg/dL (7.0-18.0); CARBON DIOXIDE,CO2 20.6 mmol/L (21.0-32.0); CHLORIDE,CL 109 mmol/L (98-107); GLUCOSE RANDOM 139 mg/dL (74-106); LIPASE 47 U/L (73-393); POTASSIUM,K 4.6 mmol/L (3.5-5.1); SODIUM,NA 143 mmol/L (136-145)
[2021-10-11] MEDS ORDERED: Ondansetron 4 MG/2 ML SDV IVPUSH ONE (11:34)
[2021-10-11] MEDS ORDERED: Ondansetron 4 MG Tab PO STA (11:38)
== END 2021-10-11 11:47 | disposition home or self-care (01) ==
LOC: MW.ED 08:44
DX: R10.13 Epigastric pain (principal); E11.43 Type 2 diabetes mellitus with diabetic autonomic (poly)neuropathy; Z88.0 Allergy status to penicillin; Z88.6 Allergy status to analgesic agent; Z88.8 Allergy status to other drugs, medicaments and biological substances; Z79.899 Other long term (current) drug therapy
CPT/HCPCS: 36415; 80053; 81001; 83605; 83690; 85025; 96372; 99284; A9270; J0780; J1885

== ENCOUNTER 2021-10-27 09:35 | Emergency (ER) | payer MEDICAID ==
[2021-10-27] MEDS ORDERED: Alum Hydro/Mag Hydro/Simeth XS 15 ML, Lidocaine 2% 5 ML PO ONE ×2 (09:47)
[2021-10-27] MEDS ORDERED: Ondansetron 4 MG/2 ML SDV IVPUSH ONE (09:48)
[2021-10-27] MEDS ORDERED: Famotidine 20 MG Tab PO ONE (09:48)
[2021-10-27 10:42] LABS: BLOOD UREA NITROGEN,BUN 11 mg/dL (7.0-18.0); CARBON DIOXIDE,CO2 22.3 mmol/L (21.0-32.0); CHLORIDE,CL 108 mmol/L (98-107); GLUCOSE RANDOM 115 mg/dL (74-106); LIPASE 37 U/L (73-393); POTASSIUM,K 4.1 mmol/L (3.5-5.1); SODIUM,NA 142 mmol/L (136-145)
[2021-10-27] MEDS ORDERED: diphenhydrAMINE 50 MG Cap PO ONE (10:54)
== END 2021-10-27 12:49 | disposition home or self-care (01) ==
LOC: MW.ED 09:35
DX: K31.84 Gastroparesis (principal); R10.12 Left upper quadrant pain; R11.2 Nausea with vomiting, unspecified; Z79.899 Other long term (current) drug therapy; Z88.0 Allergy status to penicillin; Z88.8 Allergy status to other drugs, medicaments and biological substances; Z88.6 Allergy status to analgesic agent
CPT/HCPCS: 36415; 80053; 83690; 85025; 96374; 99284; A9270; J2405

== ENCOUNTER 2022-01-12 12:16 | Emergency (ER) | payer MEDICAID | END 2022-01-12 14:25 | disposition home or self-care (01) | LOC: MW.ED 12:16 | DX: S60.051A Contusion of right little finger without damage to nail, initial encounter (principal); H66.92 Otitis media, unspecified, left ear; H60.92 Unspecified otitis externa, left ear; F17.210 Nicotine dependence, cigarettes, uncomplicated; Z88.0 Allergy status to penicillin; Z88.5 Allergy status to narcotic agent; W22.09XA Striking against other stationary object, initial encounter | CPT/HCPCS: 73130-26-RT; 73130-RT; 99282; 99283 ==

== ENCOUNTER 2022-01-26 17:28 | Emergency (ER) | payer MEDICAID ==
[2022-01-26 18:33] LABS: CARBON DIOXIDE,CO2 26.9 mmol/L (21.0-32.0)
[2022-01-26] MEDS ORDERED: Ketorolac 60 MG/2 ML SDV IM ONE (19:19)
== END 2022-01-26 19:38 | disposition home or self-care (01) ==
LOC: MW.ED 17:28
DX: R07.89 Other chest pain (principal); Z88.0 Allergy status to penicillin; Z88.8 Allergy status to other drugs, medicaments and biological substances; Z88.6 Allergy status to analgesic agent; Z79.899 Other long term (current) drug therapy; Z20.822 Contact with and (suspected) exposure to COVID-19
CPT/HCPCS: 36415; 71045; 80053; 84443; 84484; 85025; 87635; 93005; 96372; 99285; J1885; 93010; 99284; U0002